=== PATIENT | female | born 1945 | race Caucasian/White ===

== ENCOUNTER → 2023-04-01 08:05 | Outpatient (REF) | payer MEDICARE, SELFPAY | LOC: WOUND 08:05 | PROVIDERS: ATTENDING PHYSICIAN Surgery; REFERRING PHYSICIAN Physician Assistant Medical | DX: L97.822 Non-pressure chronic ulcer of other part of left lower leg with fat layer exposed (principal); M79.7 Fibromyalgia; K44.9 Diaphragmatic hernia without obstruction or gangrene; G62.9 Polyneuropathy, unspecified | CPT/HCPCS: 17250; 29580; 99203 ==

== ENCOUNTER → 2023-04-22 09:49 | Outpatient (REF) | payer MEDICARE, SELFPAY | LOC: WOUND 09:49 | PROVIDERS: ATTENDING PHYSICIAN Surgery; REFERRING PHYSICIAN Physician Assistant Medical | DX: L97.822 Non-pressure chronic ulcer of other part of left lower leg with fat layer exposed (principal); M79.7 Fibromyalgia; J44.9 Chronic obstructive pulmonary disease, unspecified; G62.9 Polyneuropathy, unspecified | CPT/HCPCS: 99212 ==

== ENCOUNTER → 2023-05-28 14:40 | Outpatient (REF) | payer MEDICARE, SELFPAY | LOC: HWRAD 14:40 | PROVIDERS: ATTENDING PHYSICIAN Nurse Practitioner Adult Health; FAMILY PHYSICIAN Physician Assistant Medical; REFERRING PHYSICIAN Student in an Organized Health Care Education/Training Program | DX: J39.8 Other specified diseases of upper respiratory tract (principal); M25.511 Pain in right shoulder | CPT/HCPCS: 71250; 73030 ==

== ENCOUNTER → 2023-06-11 08:06 | Outpatient (REF) | payer MEDICARE, SELFPAY | LOC: RAD 08:06 | PROVIDERS: ATTENDING PHYSICIAN Nurse Practitioner Adult Health; FAMILY PHYSICIAN Physician Assistant Medical | DX: J44.9 Chronic obstructive pulmonary disease, unspecified (principal); R13.10 Dysphagia, unspecified | CPT/HCPCS: 74230; 92611 ==

== ENCOUNTER 2023-11-14 19:28 | Inpatient (IN) | payer MEDICARE, SELFPAY ==
[2023-11-14] VITALS (27 sets, daily range): BP systolic 102–153; BP diastolic 52–95
[2023-11-14] MEDS: TYLENOL 650 MG PO (13:56)
[2023-11-14 14:08] LABS: % Basophils 0.3 % (0-2); % Eosinophils 0.2 % (0-6); % Immature Granulocytes 0.5 % (0-0.5); % Lymphocytes 5.1 % (20.5-51.1); % Neutrophils 87.9 % (42.2-75.2); Absolute Basophils 0.1 10^3/uL (0-0.2); Absolute Immature Granulocytes 0.1 10^3/uL (0-0.05); Absolute Lymphocytes 0.8 10^3/uL (1.2-3.4); Absolute Monocytes 0.9 10^3/uL (0.1-0.6); Absolute Neutrophils 13.4 10^3/uL (1.4-6.5); Hematocrit 33.9 % (37.0-47.0); Hemoglobin 11.5 g/dL (12.0-16.0); Mean Corp Hgb Conc. 33.9 g/dL (33.0-37.0); Mean Corpuscular Volume 85.6 fL (81.0-99.0); Mean Platelet Volume 9.7 fL (7.4-10.4); Nucleated Red Blood Cells % 0 %; Platelet Count 245 10^3/uL (130-400); Red Blood Cell Count 3.96 10^6/uL (4.20-5.40); Red Cell Dist. Width 13.2 % (11.5-14.5); White Blood Cell Count 15.2 10^3/uL (4.8-10.8)
[2023-11-14 14:23] LABS: COVID-19 Antigen Negative (Negative)
[2023-11-14 14:35] LABS: ALT (SGPT) 37 U/L (0-35); AST (SGOT) 47 U/L (14-36); Albumin 3.8 g/dl (3.5-5.0); Alkaline Phosphatase 199 U/L (38-126); Blood Urea Nitrogen 15 mg/dl (7-17); Carbon Dioxide 26 mmol/L (22-30); Chloride 99 mmol/L (98-107); Glucose 132 mg/dl (70-99); Potassium 4.1 mmol/L (3.5-5.1); Sodium 135 mmol/L (135-145); Total Protein 6.5 g/dl (6.3-8.2); eGFR > 60.00
[2023-11-14 14:37] LABS: NT-proBNP 10600 pg/ml
--- NOTE | 2023-11-14 15:02 | ED.GENMED ---
History of Present Illness
General
Chief Complaint: Breathing Problem
Time Seen by Provider: 11/14/23 15:02
History of Present Illness
History of Present Illness:
HPI: Patient presents with shortness of breath associated with chest pressure. She also tells me she has had chest pressure for years. She has associated fever. She overall has an unwell feeling. Her shortness of breath gets worse when she lays
down flat.
EXAM:
GENERAL: The patient is somewhat ill-appearing and appears in respiratory distress
HEENT: Moist oral mucosa
CARDIOVASCULAR: No murmurs, normal heart rate, regular rhythm, No chest wall tenderness
PULMONARY: Mild respiratory distress, breath sounds are equally decreased
ABDOMEN: Soft with no peritoneal signs, no tenderness
NEUROLOGIC: Excellent strength all extremities, no coordination deficits
PSYCHIATRIC: Appropriate mental status, normal insight and judgement
EXTREMITIES: Nontender, 1+ bilateral edema, moves all extremities equally
SKIN: No rash, no lesions
TIME OF INITIAL ENCOUNTER: 2 PM
NUMBER AND COMPLEXITY OF PROBLEMS ADDRESSED AT THE ENCOUNTER
� Chronic conditions affecting care: High blood pressure, COPD
� Acute Exacerbation and/or Progression of Chronic Illness: This is an acute problem
� Differential Diagnosis includes: COPD exacerbation, pneumonia, viral syndrome, CHF
AMOUNT AND/OR COMPLEXITY OF DATA TO BE REVIEWED AND ANALYZED
� I performed an independent evaluation of and my interpretation is:
EKG: Sinus 104, left axis deviation, T wave abnormality noted in the lateral leads which is new in comparison to 11/30/2019
CT: I personally viewed CT imaging of the chest and agree with radiologist that there is no PE and there is evidence for multifocal pneumonia
X-rays: Chest x-ray shows a small density in the right upper lobe
Laboratory Studies: Troponin 2.4, BNP over 10,000, normal renal function, white count 15.2
Other:
� Review of other/old records: Stress nuclear from [address] Falk showed a small inferior fixed defect, EF was 54%; echo read by Dr. Kulkarni from 2022 showed an EF of 55 to 60%
� Clinical information was obtained by an independent historian: I spoke to at bedside
� Prescriptions/Medications Considered but not given:
� Further testing considered but not performed:
RISK OF COMPLICATIONS AND/OR MORBIDITY OR MORTALITY OF PATIENT MANAGEMENT
� Social determinants of health affecting care: Lives at home
� Discussion with other providers: Discussed case with Dr. Falk. Hospitalist for admission.
� Escalation of care including admission/observation vs risk of discharge considered: The patient has lateral T wave inversion along with troponin of 2.4 which is new. Nitroglycerin with only questionable improvement and she
also tells me that she has chest tightness 'for years'. However since she does have abnormal evaluation for ischemia, will place on nitroglycerin drip. BNP is also markedly elevated at over 10,000�she was diuresed. Chest CT shows evidence of
pneumonia is likely multifactorial. There is no evidence for PE. I have also heparinized the patient.
Past History
Past History
ED Past Medical History: COPD, Fibromyalgia, Hypercholesterolemia, Other (chronic diarrhea started 10/2017) and Other (Alkalosic spondylitis, herniated lumbar discs, neuropathy)
ED Past Surgical History: Cholecystectomy and Gynecological (Hysterectomy)
Social History
Tobacco: Smoker
Alcohol: Daily (Wine)
Personal:
Living: with family
Family History
Family History: Other (Brother with herniated discs in the lumbar spine)
Phy Exam
Physical Exam
Physical Exam:
See HPI
Scores
Heart Failure Risk
Heart Failure Risk Score: Not Applicable
Course
Orders/Labs/Results
Orders:
Orders
11/14/23 13:51
CR Chest - 2 Views Urgent
Comment:
Reason For Exam: cough/SOB
11/14/23 13:52
ECG [Electrocardiogram (*1)] Urgent
Reason for Study: Chest Pain
EKG- Treatment ONCE
11/14/23 13:53
Acetaminophen [Tylenol] 650 mg PO NOW STA
11/14/23 14:02
CBC/With Diff [Complete Blood Count/With Diff] Urgent
COVID-19 Antigen Urgent
Source: Nasal Swab
Comprehensive Metabolic Panel Urgent
NT-proBNP Urgent
Troponin I Urgent
11/14/23 14:48
PTT Urgent
Prothrombin Time Urgent
11/14/23 15:07
CT Chest Pe Study Urgent
Comment:
Reason For Exam: abnormal CXR, high trop/bnp
11/14/23 15:52
Furosemide [Lasix] 40 mg IV NOW STA
MethylPREDNISolone PF [Solu-Medrol Pf] 125 mg IV NOW STA
11/14/23 15:56
Nitroglycerin Sublingual [Nitrostat (Sublingual)] 0.4 mg SL NOW STA
11/14/23 16:11
Heparin 4,000 units IV NOW STA
Nursing to Place Non Medication Order As Directed
Physician Order: PTT 6 hours after initial start of Heparin infusion
11/14/23 16:15
Heparin 23574 Units/250 ml 25,000 units in 250 ml IV PER PROTOCOL
Weight to be used for heparin protocol in kilograms (kg):: 77.7
Protocol:: Cardiac Tx/Acute Coronary
PTT Goal Range to be used:: PTT 73 to 111 seconds
Order type:: Initial
INITIAL Infusion Dose (UNITS/KG/hr) & then follow protocol:: 12 units/kg/hr
Infusion Dose in UNITS/hr & then follow protocol (UNITS/hr):: 950
INFUSION RATE in mL/hr & then follow protocol (mL/hr):: 9.5
PTT less than or equal to 64 seconds:: Increase rate by 200 units/hr (+ 2 mL/hr)
PTT 64.1 to 72.9 seconds:: Increase rate by 100 units/hr (+ 1 mL/hr)
PTT 73 to 111 seconds:: Target Range. No change in rate.
PTT 111.1 to 130.9 seconds:: Decrease rate by 100 units/hr (- 1 mL/hr)
PTT 131 to 199.9 seconds:: HOLD for 1 hr. Then decrease rate by 200 units/hr (- 2 mL/hr)
PTT greater than or equal to 200 seconds:: HOLD for 2 hrs & Notify Provider. Then decrease by 200 units/hr (-
2 mL/hr)
Lab follow-up:: Each change, PTT q6h until 2 consecutive are therapeutic. Then PTT
daily.
11/14/23 16:55
Azithromycin 500 mg/250 ml [Zithromax Infusion] 500 mg in 250 ml IV NOW
CefTRIAXone [Rocephin] 1,000 mg IV NOW STA
11/14/23 17:[address] See Dose Instructions IV DIRECTED
11/14/23 17:15
Nitroglycerin INFUSION CONTINUOUS Nitroglycerin 100 mg/250 ml [Nitroglycerin Premix] 100 mg in 250 ml IV PER PROTOCOL
Initial dose in mcg/min, then titrate:: 5
Titrate to keep:: Chest Pain Free
Titrate by mcg/min:: 5 mcg/min, may increase by 10 mcg/min if dose > 20 mcg/min
Frequency of titrations (minutes):: every 3-5 minutes
Maximum dose in mcg/min:: 200
Begin to taper infusion when:: Remained at goal for 2hrs
Taper by mcg/min:: 5 mcg/min
Frequency of taper (minutes) if patient maintains goal:: 30
Taper to off?: Yes
If infusion off & no longer maintaining goal:: Contact Provider
11/14/23 22:30
PTT Urgent
Abnormal Lab Results
11/14/23 11/14/23
14:02 14:48
WBC 15.2 H 10^3/uL
(4.8-10.8)
RBC 3.96 L 10^6/uL
(4.20-5.40)
Hgb 11.5 L g/dL
(12.0-16.0)
Hct 33.9 L %
(37.0-47.0)
Abs Immat Gran (auto) 0.1 H 10^3/uL
(0-0.05)
Absolute Neuts (auto) 13.4 H 10^3/uL
(1.4-6.5)
Absolute Lymphs (auto) 0.8 L 10^3/uL
(1.2-3.4)
Absolute Monos (auto) 0.9 H 10^3/uL
(0.1-0.6)
Neutrophils % 87.9 H %
(42.2-75.2)
Lymphocytes % 5.1 L %
(20.5-51.1)
PT 16.3 H Sec
(11.4-14.6)
APTT 48.8 H Sec
(23.4-35.0)
Glucose 132 H mg/dl
(70-99)
AST 47 H U/L
(14-36)
ALT 37 H U/L
(0-35)
Alkaline Phosphatase 199 H U/L
(38-126)
Troponin I 2.410 H* ng/ml
11/14/23 14:02
11/14/23 14:02
Vital Signs
Initial and Last Documented VS:
Initial Vital Signs
Temp Pulse Resp BP Pulse Ox
101.1 F H 115 20 153/87 91
11/14/23 13:47 11/14/23 13:47 11/14/23 13:47 11/14/23 13:47 11/14/23 13:47
Last Documented Vital Signs
Temp Pulse Resp BP Pulse Ox
100.5 F H 98 22 135/61 94
11/14/23 14:46 11/14/23 16:07 11/14/23 15:30 11/14/23 16:07 11/14/23 15:30
*Critical Care Note
Total Time (30-74mins, 75-104mins- exclusive of procedures): 40min
comment:
The patient has abnormal EKG with abnormal troponin, very high BNP, likely a contributing factor of COPD for which she was given steroids, was placed on heparin and nitroglycerin emergently and I had discussions with cardiology emergently.
ED Attending Note
-
Portions of this chart may have been created with voice recognition software.� Occasional wrong word or��sound alike� substitutions may have occurred due to the inherent limitations of voice recognition software.
Discharge Plan
Departure
Patient Disposition: Admit
Date of Disposition: 11/14/23
Time of Disposition: 16:58
Presentation/result/management discussed w/ accepting MD/DO: Hospitalist
Discharge Problem:
Pneumonia
Prescriptions:
No Action
losartan 50 MG tablet
100 mg PO DAILY
biotin 5,000 MCG tablet,disintegrating
5,000 mcg PO DAILY
zolpidem 10 MG tablet
10 mg PO HS
sertraline 50 MG tablet
150 mg PO DAILY
calcium carbonate 500 MG tablet
500 mg PO DAILY
atorvastatin 40 MG tablet
40 mg PO QPM
lansoprazole [Prevacid] 30 MG capsule,delayed release(DR/EC)
30 mg PO DAILY
albuterol sulfate 1 PUFF HFA aerosol inhaler
2 puff inhalation R Q4HPRN PRN (Reason: sob)
cholecalciferol (vitamin D3) 2,000 UNITS tablet
2,000 units PO DAILY
multivitamin with folic acid [Tab-A-Kashif] 1 TABLET tablet
1 tab PO DAILY
celecoxib 200 MG capsule
200 mg PO BID
oxycodone-acetaminophen [Percocet] 10-325 mg Tablet
1 tab PO Q8HPRN PRN (Reason: severe pain)
Gigzoloztri Aerosphere 160-9-4.8 mcg/actuation Hfa Aerosol Inhaler
2 inh INHALATION R BID
Visbiome 112.5 billion cell Capsule
1 cap PO DAILY
Referrals:
Linette Hernandez PA-C [Family Provider] -
Interventions
Interventions:
*Risk Screen - Suicide Last Done: 11/14/23 13:47
*General Assessment Last Done: 11/14/23 13:47
*Neglect/Abuse Screening Last Done: 11/14/23 13:47
ED- Cardiac Assessment Last Done: 11/14/23 14:40
ED- Pulmonary Assessment Last Done: 11/14/23 14:40
Discharge Date and Time
Print Language: SAUDI ARABIAN
[2023-11-14 15:04] LABS: INR 1.33; PT 16.3 Sec (11.4-14.6)
[2023-11-14 15:05] LABS: APTT 48.8 Sec (23.4-35.0)
[2023-11-14] MEDS: NITROSTAT (SUBLINGUAL) 0.4 MG SL (16:05)
[2023-11-14] MEDS: SOLU-MEDROL PF 125 MG IV (16:06)
[2023-11-14] MEDS: LASIX 40 MG IV (16:07)
[2023-11-14] MEDS: HEPARIN 4000 UNITS IV (16:25)
[2023-11-14] MEDS: HEPARIN 25000 UNITS/250 ML IV (16:26)
[2023-11-14] MEDS: ROCEPHIN 1000 MG IV (17:27)
[2023-11-14] MEDS: ZITHROMAX INFUSION 250 IV (17:37)
[2023-11-14] MEDS: ASPIRIN 325 MG PO (17:37)
[2023-11-14] MEDS: NITROGLYCERIN PREMIX 250 IV (17:50)
--- NOTE | 2023-11-14 18:11 | HPS.HSE ---
Family Physician
-
Family Physician: Linette Hernandez
Chief Complaint
-
SOB
History of Present Illness
The patient is a 78 yo woman with PMH significant for COPD (sees Pulmonary), HTN, HLD, GERD, who presents to the ED due to worsening dyspnea that has been increasingly worse over the past 1 [place] got [place] on [place],
and said that she was having notably worsening dyspnea with exertion. She has band-like chest pressure that she describes as having 'forever' however it has been worse this past week. She now has a fever as well. Of note SOB is worse with lying
flat. She is feeling nausea a/w CP and SOB, and says it may be because she hasn't eaten all day and feels hungry. No n/v, no diarrhea, no constipation, no dysuria. No rashes, no bruising, no bleeding. She was given IV Lasix in ED, troponin is
elevated at 2.410, Cardiology consultation is placed from ED, and pt started in heparin gtt and NTG gtt for persistent CP. Also found to have multifocal PNA on CT chest, and started in IV Rocephin and IV Azithromycin.
Medical History
Past Medical History
Past Medical History: Reports COPD, GERD, HTN, Hypercholesterolemia, Psychiatric (depression) and Other (OA right hip, neuropathy, insomnia)
Past Surgical History: Reports Gynocological (ТАТЬЯНА 1981) and Orthopedic (right total hip arthroplasty, rotator cuff 1999)
Social History
Tobacco: Former Smoker
Alcohol: Occasional
Personal:
Living: With Family
Family History
Family History: CAD (father from acute [place])
Allergies / Home Medications
Allergies reflects when Allergies were last updated in [employer].
Home Medications with original date entered in [employer]
Allergy/Medication List:
Allergies
Allergy/AdvReac Type Severity Reaction Status Date / Time
mold Allergy COUGHING, Verified 11/14/23 13:47
RUNNY
NOSE, AND
HEADACHE
Home Medications
losartan 50 mg tablet 100 mg PO DAILY 03/15/16
biotin 5,000 mcg disintegrating tablet 5,000 mcg PO DAILY 01/06/17
calcium carbonate 500 mg PO DAILY 01/06/17
sertraline 50 mg tablet 150 mg PO DAILY 01/06/17
zolpidem 10 mg tablet 10 mg PO HS 01/06/17
albuterol sulfate 90 mcg/actuation aerosol inhaler 2 puff inhalation R Q4HPRN PRN sob 05/31/18
atorvastatin 40 mg tablet 40 mg PO QPM 05/31/18
cholecalciferol (vitamin D3) 50 mcg (2,000 unit) tablet 2,000 units PO DAILY 05/31/18
lansoprazole 30 mg capsule,delayed release (Prevacid) 30 mg PO DAILY 05/31/18
multivitamin with folic acid 400 mcg tablet (Tab-A-Kashif) 1 tab PO DAILY 05/31/18
celecoxib 200 mg capsule 200 mg PO BID 05/04/20
budesonide 160 mcg-glycopyr 9 mcg-formot 4.8 mcg/actuation HFA inhaler (Breztri Aerosphere) 2 inh inhalation R BID 08/17/22
oxycodone-acetaminophen 10 mg-325 mg tablet (Percocet) 1 tab PO Q8HPRN PRN severe pain 08/17/22
Lactobac no.2-Bifidobac no.1-S. thermo 112.5 billion cell capsule (Visbiome) 1 cap PO DAILY 11/14/23
Review of Systems
-
A 12 point ROS was completed and negative except as noted: Yes
Physical Exam
Vital Signs
Vital Signs
Temp Pulse Resp BP Pulse Ox
100.5 F H 101 23 135/61 95
11/14/23 14:46 11/14/23 17:50 11/14/23 17:50 11/14/23 16:07 11/14/23 17:50
Physical Exam
General: Well Developed, Well Nourished and Respiratory Distress (dyspnea with conversation)
Respiratory: Clear and Other (decreased breath sounds b/l)
Cardiac: S1/S2 and Regular Rhythm
GI: Soft, Non Tender and Non Distended
Musculoskeletal: No Clubbing, No Cyanosis and No Edema
Skin: Warm and Dry
Neuro: AO x 3, No Motor Deficits and Nonfocal/grossly intact
Psych: Calm
Laboratory Results
-
11/14/23 14:02
11/14/23 14:02
Laboratory Results
PT 16.3 Sec (11.4-14.6) H 11/14/23 14:48
INR 1.33 11/14/23 14:48
APTT 48.8 Sec (23.4-35.0) H 11/14/23 14:48
Lactic Acid 1.0 mmol/L (0.7-2.0) 11/14/23 17:23
Total Bilirubin 1.0 mg/dl (0.2-1.3) 11/14/23 14:02
AST 47 U/L (14-36) H 11/14/23 14:02
ALT 37 U/L (0-35) H 11/14/23 14:02
Alkaline Phosphatase 199 U/L (38-126) H 11/14/23 14:02
Troponin I 2.410 ng/ml H* 11/14/23 14:02
Impression/Plan
-
IMPRESSION:The patient is a 78 yo woman with PMH significant for COPD (sees Pulmonary), HTN, HLD, GERD, who presents to the ED due to worsening dyspnea that has been increasingly worse over the past 1 [place] got back on
Wednesday, and said that she was having notably worsening dyspnea with exertion. She has band-like chest pressure that she describes as having 'forever' however it has been worse this past week. She now has a fever as well. Of note SOB is worse with
lying flat. Troponin is elevated at 2.410, Cardiology consultation is placed from ED, and pt started in heparin gtt and NTG gtt for persistent CP. Also found to have multifocal PNA on CT chest, and started in IV Rocephin and IV Azithromycin.
#Acute hypoxic respiratory failure, multifactorial associated with Multifocal Pneumonia & NSTEMI, in setting of underlying comorbidity of COPD
-[facility] admission, tele monitoring
-Continue hep gtt and ntg gtt started in ED, per protocols
- serial trop (tonight and tomorrow am)
-Cardiology consultation placed and appreciated
-serial EKG
-echocardiogram (echo 07/2022 EF 55-60% on normal)
-NPO p mn
-continue O2, wean as appropriate
-hold off on further IV Lasix at this time, s/p 40 IV in ED
-s/p IV Solu-Medrol x 1 in ED, hold off on further doses as this does not seem to be COPD exac at this time
-daily aspirin
#Multifocal PNA w fever
-CT chest - bilateral tree-in-bud opacities with foci of more nodular consolidation and surrounding groundglass opacities consistent with multifocal pneumonia. There are additional prominent mediastinal and bilateral hilar lymph nodes which are
likely reactive Recommend follow-up CT to ensure resolution.
-Will need f/u CT
-cont IV Rocephin and IV Azithromycin
-sputum cx, blood cx
#Former tobacco use
-f/u CT as above
# HTN
-Losartan
#GERD
-prevacid
#HLD
-statin
#Depression
-Sertraline
DVT proph-hep gtt
Full Code
--- NOTE | 2023-11-14 19:13 | EDRN ---
Report received, introduced myself to patient and patient aware waiting on a room at this time, zithromax completed at this time, patient reports her pressure in chest is still at a 6, will review orders for this, other seo patient comfortable,
belongings bagged, at bedside with her, call light in reach.
--- NOTE | 2023-11-14 21:30 | PTCARENOTE ---
received patient from the ED. AAOx3. SR 80s. bp stable. patient complaining of chest pressure-band like, under her breast, /. nitro gtt increased per order. EKG completed. patient also complaining of worsening shortness of breath. patient appears
uncomfortable. + moist cough. RR 24. 94 on 3L. coarse b/l bases. anterior wheezing noted. updated respiratory for a PRN neb treatment. heparin gtt infusing at 9.5 ml/hr. reviewed plan of care with patient and verbalized understanding. NPO at
midnight. answered all questions.
patient states taking Losartan and Atorvastatin at night. orders placed per Geneva Fofana NP (Linda). patient requesting at home Ambien dose as well-will hold tonight per [facility] HAND. patient agreeable.
[2023-11-14] MEDS: VENTOLIN NEBULES 2.5 MG INH (21:34)
[2023-11-14] MEDS: COZAAR 100 MG PO (22:33)
[2023-11-14] MEDS: LIPITOR 40 MG PO (22:33)
[2023-11-14 22:58] LABS: APTT 66.1 Sec (23.4-35.0)
[2023-11-15] VITALS (9 sets, daily range): BP systolic 102–130; BP diastolic 55–77
[2023-11-15] MEDS: NSS 1000 IV (00:07)
[2023-11-15] MEDS: VENTOLIN NEBULES 2.5 MG INH (02:19)
--- NOTE | 2023-11-15 03:11 | PTCARENOTE ---
Addendum entered by Ayo Lomax RN 11/15/23 05:56:
patient resting in bed comfortably. denies any chest pressure at this time. nitro gtt maintained at 20 mcg/min. heparin gtt infusing per protocol.
Original Note:
patient complaining of 4/10 middle chest 'tightness' that worsened with deep breaths. increased nitro gtt to 20 mcg/min. respiratory bedside and administered PRN neb. patient states after neb-pain is gone. EKG completed. nitro gtt maintained. HR SR
80s with PACs. bp 118/59.
[2023-11-15 05:16] LABS: % Basophils 0.1 % (0-2); % Immature Granulocytes 0.5 % (0-0.5); % Lymphocytes 3.4 % (20.5-51.1); % Monocytes 2.4 % (1.7-9.3); % Neutrophils 93.6 % (42.2-75.2); Absolute Immature Granulocytes 0.1 10^3/uL (0-0.05); Absolute Lymphocytes 0.5 10^3/uL (1.2-3.4); Absolute Monocytes 0.3 10^3/uL (0.1-0.6); Absolute Neutrophils 13.5 10^3/uL (1.4-6.5); Hematocrit 29.9 % (37.0-47.0); Hemoglobin 10.4 g/dL (12.0-16.0); Mean Corp Hgb Conc. 34.8 g/dL (33.0-37.0); Mean Corpuscular Hgb 30.1 pg (27.0-31.0); Mean Corpuscular Volume 86.7 fL (81.0-99.0); Mean Platelet Volume 10.1 fL (7.4-10.4); Nucleated Red Blood Cells % 0 %; Platelet Count 241 10^3/uL (130-400); Red Blood Cell Count 3.45 10^6/uL (4.20-5.40); White Blood Cell Count 14.4 10^3/uL (4.8-10.8)
[2023-11-15 05:22] LABS: INR 1.43; PT 17.3 Sec (11.4-14.6)
[2023-11-15 05:23] LABS: APTT 77.8 Sec (23.4-35.0)
[2023-11-15 05:30] LABS: ALT (SGPT) 32 U/L (0-35); AST (SGOT) 36 U/L (14-36); Albumin 3.2 g/dl (3.5-5.0); Alkaline Phosphatase 174 U/L (38-126); Blood Urea Nitrogen 21 mg/dl (7-17); Calcium 8.3 mg/dl (8.4-10.2); Carbon Dioxide 27 mmol/L (22-30); Chloride 100 mmol/L (98-107); Estimated Creatinine Clearance 69 ml/min; Glucose 199 mg/dl (70-99); HDL Cholesterol 43 mg/dl; LDL Cholesterol, Calculated 63 mg/dl; Potassium 3.3 mmol/L (3.5-5.1); Sodium 135 mmol/L (135-145); Total Bilirubin 0.5 mg/dl (0.2-1.3); Total Cholesterol 121 mg/dl (50-199); Total Protein 5.7 g/dl (6.3-8.2); Triglyceride 77 mg/dl (10-149); Very Low Density Lipoprotein 15 mg/dl (0-30); eGFR > 60.00
[2023-11-15 05:40] LABS: Troponin I 0.952 ng/ml
[2023-11-15] MEDS: SPIRIVA RESPIMAT 2.5 MCG 2 PUFF INH (07:15)
[2023-11-15] MEDS: SYMBICORT 160/4.5 MCG INHALER 2 PUFF INH ×2 (07:15→19:24)
[2023-11-15] MEDS: ZOLOFT 150 MG PO (07:31)
[2023-11-15] MEDS: PROTONIX 40 MG PO (07:31)
[2023-11-15] MEDS: LOW STRENGTH ASPIRIN 81 MG PO (07:31)
--- NOTE | 2023-11-15 07:45 | CON.CAR ---
Addendum entered and electronically signed by Epifanio Kulkarni DO 11/15/23 11:08:
I saw and examined the patient.
The System Support Administrator's note was reviewed and I agree with the note.
Comment:
Plan:
She has multifactorial dyspnea including HF and COPD exacerbation and may have PNA.
Discussed that her troponin has peaked when she came in and that she is likely a subacute presentation of CT that she may have suffered on Nov 11.
Await echo but preliminary notes wall motion change and mildly reduced EF.
EKG with T wave inversion but without ST elevation.
Discussed options and would continue IV Heparin and IV nitro for now.
Discussed possible left heart cath next 24 hrs. Would attempt further stabilization from a pulm and HF standpoint prior to cath if possible.
Some of her dyspnea and orthopnea likely related at this point to HF.
Cont IV diuresis
Will reassess pt
Cont Pulm toilet as eval as per pulm
Discussed with IC and with nursing at bedside.
Original Note:
Consultation
Consultation Request
Date/Time Consultation Requested: 11/14/2023
Date/Time Consultation Performed: 11/15/2023
Requesting Provider: Dr. Navarro
Performing Provider: Namrata Chappell PA-C for Dr. Aleksandar White
Reason for Consultation: Chest pain, shortness of breath
Medical History
-
History of Present Illness:
Patient is a 78-year-old female with past medical history significant for COPD, hypertension, hyperlipidemia, GERD who presents to emergency department with chest heaviness associated with shortness of breath. Patient reports intermittent
exertional chest discomfort like a band around her chest for several months and dyspnea on exertion. Over the last week she noted worsening cough associated with shortness of breath and chest pressure/heaviness with minimal activity. Wednesday [place]
was at the beach and was unable to walk several steps before having symptoms symptoms continued at rest. She continued to have chest heaviness, cough, shortness of breath, orthopnea and PND throughout the weekend prompting her to come to the
emergency department last evening 11/14/2023. On presentation to emergency department noted to have elevated troponin at 2.41. EKG showed sinus tachycardia with nonspecific T wave abnormality in lateral lead with septal infarct age indeterminate.
Started on IV heparin and NTG drip. ProBNP 10,600. She received IV Lasix [address] of chest was negative for PE. There were bilateral groundglass opacities consistent for multifocal pneumonia as well as prominent mediastinal and bilateral hilar
lymph nodes. She was given dose of IV steroids and placed on Rocephin and azithromycin.
Past medical history:
Hypertension
Hyperlipidemia
COPD
GERD
Depression
Fibromyalgia
Chronic back pain/Spinal stenosis
Peripheral neuropathy
Diverticulitis
Thyroid nodule
Past Medical History
Past Medical History: Other (See HPI)
Past Surgical History: Gynecological (Hysterectomy), Orthopedic (Right hip replacement, carpal tunnel release, rotator cuff surgery) and Other
Social History
Tobacco: Former Smoker
Alcohol: Occasional
Drug: None
Personal:
Living: With Family
Family History
Family History: Other (Mother of brain tumor. Father at age 42, was alcoholic and suspected CT)
Allergies / Home Medications
Allergy/AdvReac Type Severity Reaction Status Date / Time
mold Allergy COUGHING, Verified 11/14/23 13:47
RUNNY
NOSE, AND
HEADACHE
�Medication �Instructions �Recorded �Confirmed �Type
losartan 50 mg tablet 100 mg PO DAILY Blood Pressure 03/15/16 11/14/23 History
biotin 5,000 mcg disintegrating 5,000 mcg PO DAILY Supplement 01/06/17 11/14/23 History
tablet
calcium carbonate 500 mg PO DAILY Supplement 01/06/17 11/14/23 History
sertraline 50 mg tablet 150 mg PO DAILY Depression 01/06/17 11/14/23 History
zolpidem 10 mg tablet 10 mg PO HS Sleep 01/06/17 11/14/23 History
albuterol sulfate 90 mcg/actuation 2 puff inhalation R Q4HPRN PRN sob 05/31/18 11/14/23 History
aerosol inhaler
atorvastatin 40 mg tablet 40 mg PO QPM High Cholesterol 05/31/18 11/14/23 History
cholecalciferol (vitamin D3) 50 2,000 units PO DAILY Supplement 05/31/18 11/14/23 History
mcg (2,000 unit) tablet
lansoprazole 30 mg capsule,delayed 30 mg PO DAILY Gastrointestinal 05/31/18 11/14/23 History
release (Prevacid) Issue
multivitamin with folic acid 400 1 tab PO DAILY Supplement 05/31/18 11/14/23 History
mcg tablet (Tab-A-Kashif)
celecoxib 200 mg capsule 200 mg PO BID Pain 05/04/20 11/14/23 History
budesonide 160 mcg-glycopyr 9 2 inh inhalation R BID 08/17/22 11/14/23 History
mcg-formot 4.8 mcg/actuation HFA Lung/Breathing Issues
inhaler (Breztri Aerosphere)
oxycodone-acetaminophen 10 mg-325 1 tab PO Q8HPRN PRN severe pain 08/17/22 11/14/23 History
mg tablet (Percocet)
Lactobac no.2-Bifidobac no.1-S. 1 cap PO DAILY Gastrointestinal 11/14/23 11/14/23 History
thermo 112.5 billion cell capsule Issue
(Visbiome)
Review of Systems
-
History Source: Patient
All other systems: Negative unless noted
Physical Exam
Vital Signs
Temp Pulse Resp BP Pulse Ox
98.1 F 90 18 112/61 96
11/15/23 07:24 11/15/23 07:18 11/15/23 07:24 11/15/23 04:56 11/15/23 07:24
GEN: No distress, awake, Ox3, lying in bed on right side
HEENT: supple, anicteric, mmm
LUNGS: Diffuse bilateral wheezes CTA, rhonchorous breath sounds better with cough; wearing 2 L oxygen
CV: Reg, S1/S2, 1/6 syst murmur, no rub or gallop
ABD: soft, BS+, NT/ND
EXT: No edema, clubbing or cyanosis
NEURO: Gross non-focal
SKIN: No rash, warm, dry, pink
Lab Results
11/15/23 04:56
11/15/23 04:55
Troponin I 0.952 ng/ml H* 11/15/23 04:55
Htv-Y-Hrtbtnrsbrl Pept 00938 pg/ml 11/14/23 14:02
Impression / Plan
-
PCP: Linette Hernandez
Financial Planning Advisor: Evaluated by Dr. Urban 2015, no skid machine operator since
Impression:
Presented 11/14/2023 with progressively worsening chest tightness, shortness of breath, cough, orthopnea, PND
Acute hypoxic respiratory insufficiency
COPD exacerbation
Bilateral pneumonia
Acute heart failure preserved ejection fraction, proBNP 10,600
Abnormal troponin, peaked 2.41
NSTEMI, suspect late presentation
Hypertension
Hyperlipidemia
COPD
GERD
Depression
Fibromyalgia
Spinal stenosis
Peripheral neuropathy
Diverticulitis
Thyroid nodule
Echo 11/15/2023: ordered
Echo 08/18/2022: EF 55 to 60% with no significant valvular disease
Lexiscan nuclear stress test 04/13/2016: Small fixed defect in inferior segment consistent with infarction versus soft tissue attenuation/diaphragmatic attenuation, EF 54%
Plan:
-Presented 11/14/2023 with progressively worsening chest tightness, shortness of breath, cough, orthopnea, PND.
-Acute hypoxic respiratory insufficiency which is likely multifactorial secondary to COPD exacerbation, acute heart failure and bilateral pneumonia.
-Continue IV antibiotics per primary service, Pro-Pete pending
-Continue nebulizers for COPD
-Acute heart failure preserved ejection fraction, proBNP 10,600
-Continue IV diuresis excessive Lasix 40 mg
-Follow renal function, creatinine stable at 0.7
-Replete potassium, K+ 3.3
-Abnormal troponin, peaked 2.41 on admission then trended down. EKG shows sinus rhythm with concern for age-indeterminate septal infarction. Patient currently chest pain-free. Suspect NSTEMI, with late presentation CT.
-Continue IV NTG gtt at 5 mcg/min
-Check echocardiogram
-Continue IV heparin
-Discussed ischemic evaluation with cardiac catheterization. Keep NPO for now. Unclear if patient will be able to lay flat today for catheterization. Will reassess later this morning.
HPI 11/15/2023:
Patient is a 78-year-old female with past medical history significant for COPD, hypertension, hyperlipidemia, GERD who presents to emergency department with chest heaviness associated with shortness of breath. Patient reports intermittent
exertional chest discomfort like a band around her chest for several months and dyspnea on exertion. Over the last week she noted worsening cough associated with shortness of breath and chest pressure/heaviness with minimal activity. Wednesday she
was at the beach and was unable to walk several steps before having symptoms symptoms continued at rest. She continued to have chest heaviness, cough, shortness of breath, orthopnea and PND throughout the weekend prompting her to come to the
emergency department last evening 11/14/2023. On presentation to emergency department noted to have elevated troponin at 2.41. EKG showed sinus tachycardia with nonspecific T wave abnormality in lateral lead with septal infarct age indeterminate.
Started on IV heparin and NTG drip. ProBNP 10,600. She received IV Lasix [address] of chest was negative for PE. There were bilateral groundglass opacities consistent for multifocal pneumonia as well as prominent mediastinal and bilateral hilar
lymph nodes. She was given dose of IV steroids and placed on Rocephin and azithromycin.
Data Reviewed
-
EKG: Report Reviewed by me, Discussed with Physician, Discussed with Nurse and Discussed with Patient
Radiology: Report Reviewed by me, Discussed with Physician, Discussed with Nurse and Discussed with Patient
CT Scan: Report Reviewed by me, Discussed with Physician, Discussed with Nurse and Discussed with Patient
Labs: Labs Reviewed by me, Discussed with Physician, Discussed with Nurse and Discussed with Patient
Old Records: Reviewed
[2023-11-15] MEDS: ZITHROMAX INFUSION 250 IV (08:14)
[2023-11-15 09:01] LABS: Glycohemoglobin (HgbA1c) 6.1 % (4.0-5.6)
--- NOTE | 2023-11-15 09:02 | PTCARENOTE ---
Assumed care at 0645. Patient is AO x3, coughing intermittent, HOB 30 degrees, voice hoarse, coarse breath sound, coarse crackles right base, dyspneic with activity, oxygen 2 liters NC. Has constant chest pressure no pain. NSR with PAC's. Heparin
and Nitro infusing. IV antibiotics per MAY. Abdomen mildly tender to palpation. NPO for now. Echo finished at bedside. Call mack in reach
[2023-11-15 09:14] LABS: Magnesium 1.8 mg/dl (1.6-2.3)
--- NOTE | 2023-11-15 09:27 | W.PN.HOSP.TC ---
Today's Communication/Plan
-
cont heparin
cont Abx
Cardio and pulm consult
wean off O2
Assessment / Plan
Assessment / Plan
78yo F with insomnia, anxiety, HTN, COPD, HLD came with c/o 1 week of persistent worsening chest tightness, found elevated troponin and bilateral pneumonia.
A/P:
#CAP with unspecified organism
Rocephin/Azithromycin
COVID-19 neg, check RSV and influenza
Check Legionella and S.pneumo urinary Ag
Sputum Cx if possible
Procalcitonin
#Elevated troponin, concern for NSTEMI
Heparin, DAPT
Serial troponina nd EKG
Statin
Telemetry
Cardio consult
LDL WNL
check TSH
#Acute hypoxic insufficiency 2/2 mild CHF (unspecified) exacerbation
Echo, telemetry, Lasix, follow daily weights and electrolytes
wean off O2
#COPD, not in exacerbation
#RUL lung nodule
#Emphysema
COPnt bronchodilators
SIze of the nodule does not corresponds to previously seen 2mm lesion - Pulm consult
#PReDM
advise low carb diet
#Hypokalemia
replete and follow potassium
Check magnesium
#Anxiety D/o
#Essential HTN
#HLd
cont home meds
#Cronic elevation of alk.phos
#s/p cholecytectomy
#Mild anemia
#Thyroid nodules
at least since 2018
no RUQ pain, suspect bone origin
Recommend outpatient f/u with PCP
DVT ppx on hep
Full code
I have spent at least 58min reviewing chart, test results, communication with consultants and direct patient care
Anticipated Discharge: > 48 hours
Subjective/Interval History
-
Date of Service: November 15, 2023
Objective Data
-
Labs:
Laboratory Results
11/14/23 11/15/23 11/15/23
22:34 04:55 04:55
WBC
Hgb
Hct
Plt Count
PT 17.3 H
INR 1.43
APTT 66.1 H 77.8 H Cancelled
Sodium 135
Potassium 3.3 L
Chloride 100
Carbon Dioxide 27
BUN 21 H
Creatinine 0.7
Glucose 199 H
Calcium 8.3 L
Total Bilirubin 0.5
AST 36
ALT 32
Alkaline Phosphatase 174 H
11/15/23 11/15/23
04:56 11:00
WBC 14.4 H
Hgb 10.4 L
Hct 29.9 L
Plt Count 241
PT
INR
APTT Pending
Sodium
Potassium
Chloride
Carbon Dioxide
BUN
Creatinine
Glucose
Calcium
Total Bilirubin
AST
ALT
Alkaline Phosphatase
Vital Signs:
Vital Signs
Temp Pulse Resp BP Pulse Ox
98.1 F 90 18 112/61 96
11/15/23 07:24 11/15/23 07:18 11/15/23 07:24 11/15/23 04:56 11/15/23 07:24
I&O
11/14/23 11/15/23 11/16/23
06:59 06:59 06:59
Intake Total 250 / 250 250 / 250
Output Total 1575 / 1575 450 / 450
Balance -1325 / -1325 -200 / -200
Review of Systems
-
History Source: Patient
All other systems: Reviewed and negative
Respiratory: Reports Trouble Breathing
Physical Exam
-
General: No Apparent Distress
HEENT: Normocephalic and Atraumatic
Respiratory: Clear to Auscultation
GI: Soft, Nontender and Nondistended
Genito-urinary: No Costovertebral Tender
Musculoskeletal: No Clubbing, No Cyanosis and No Edema
Skin: Warm
Neuro: Awake, Alert, Oriented and AO x 3
Psych: Calm
--- NOTE | 2023-11-15 09:44 | CON.PUL ---
Consultation
Consultation Request
Date/Time Consultation Requested: 11/15/2023-7:30 AM
Date/Time Consultation Performed: 11/15/2023-8 AM
Requesting Provider: Hospitalist
Performing Provider: Dr. Boykin
Reason for Consultation: Shortness of breath
Medical History
-
Chief Complaint: Shortness of breath
History of Present Illness:
78-year-old female with a history of COPD, 53-mrqw-dbph smoking history quit 10 years ago, hypertension, hyperlipidemia, reflux who presents with progressive shortness of breath diagnosed with multifocal pneumonia and NSTEMI-pulmonary consulted for
pneumonia/COPD 11/15/2023. She has unexpected dry heaves this morning. She has been unable to eat for several days. She does have some epigastric pain. She is on a PPI. She complains of progressive shortness of breath but no chest pain,
pleurisy, hemoptysis. She does have chest congestion with difficulties mobilizing her secretions. She was previously stable from a pulmonary perspective though seen in July in the pulmonary office with some COPD like issues. She offers no
complaints of current abdominal pain but does feel like she is constipated. She has no blood per rectum, weakness, or increased lower extremity swelling.
Past Medical History
Past Medical History: None (COPD. Former jnvnoa-77-21-pack-year quit 10 years ago. Hypertension. Hyperlipidemia. GERD. Depression. Fibromyalgia. Chronic back pain/spinal stenosis. Peripheral neuropathy. Diverticulosis. Thyroid nodule.)
Past Surgical History: None (Hysterectomy. Right hip replacement. Carpal tunnel. Rotator cuff.)
Social History
Tobacco: Former Smoker (05-74-emfo-year quit 10 years ago)
Alcohol: Occasional
Drug: None
Personal:
Living: With Family
Occupational Exposures: No known asbestos exposure
Environmental Exposures: No known tuberculosis exposure
Family History
Family History: Other (Mother-brain tumor. Father CAD and alcoholic diet 42 years old)
Allergies / Home Medications
Allergies
Allergy/AdvReac Type Severity Reaction Status Date / Time
mold Allergy COUGHING, Verified 11/14/23 13:47
RUNNY
NOSE, AND
HEADACHE
Home Medications
�Medication �Instructions �Recorded �Confirmed �Last Taken �Type
losartan 50 mg tablet 100 mg PO DAILY Blood Pressure 03/15/16 11/14/23 11/13/23 History
biotin 5,000 mcg disintegrating 5,000 mcg PO DAILY Supplement 01/06/17 11/14/23 11/13/23 History
tablet
calcium carbonate 500 mg PO DAILY Supplement 01/06/17 11/14/23 11/13/23 History
sertraline 50 mg tablet 150 mg PO DAILY Depression 01/06/17 11/14/23 11/13/23 History
zolpidem 10 mg tablet 10 mg PO HS Sleep 01/06/17 11/14/23 11/13/23 History
albuterol sulfate 90 mcg/actuation 2 puff inhalation R Q4HPRN PRN sob 05/31/18 11/14/23 08/17/22 06:00 History
aerosol inhaler
atorvastatin 40 mg tablet 40 mg PO QPM High Cholesterol 05/31/18 11/14/23 11/13/23 History
cholecalciferol (vitamin D3) 50 2,000 units PO DAILY Supplement 05/31/18 11/14/23 11/13/23 History
mcg (2,000 unit) tablet
lansoprazole 30 mg capsule,delayed 30 mg PO DAILY Gastrointestinal 05/31/18 11/14/23 11/13/23 History
release (Prevacid) Issue
multivitamin with folic acid 400 1 tab PO DAILY Supplement 05/31/18 11/14/23 11/13/23 History
mcg tablet (Tab-A-Kashif)
celecoxib 200 mg capsule 200 mg PO BID Pain 05/04/20 11/14/23 11/13/23 History
budesonide 160 mcg-glycopyr 9 2 inh inhalation R BID 08/17/22 11/14/23 08/17/22 08:00 History
mcg-formot 4.8 mcg/actuation HFA Lung/Breathing Issues
inhaler (Breztri Aerosphere)
oxycodone-acetaminophen 10 mg-325 1 tab PO Q8HPRN PRN severe pain 08/17/22 11/14/23 11/14/23 History
mg tablet (Percocet)
Lactobac no.2-Bifidobac no.1-S. 1 cap PO DAILY Gastrointestinal 11/14/23 11/14/23 11/13/23 History
thermo 112.5 billion cell capsule Issue
(Visbiome)
Review of Systems
-
Unable to Obtain full review of systems at this time due to: Other (Per HPI)
Vitals / Labs / Diagnostic Testing
Vital Signs
Temp Pulse Resp BP Pulse Ox
98.1 F 90 18 112/61 96
11/15/23 07:24 11/15/23 07:18 11/15/23 07:24 11/15/23 04:56 11/15/23 07:24
Lab Data
11/15/23 04:56
11/15/23 04:55
Laboratory Results
11/14/23 11/14/23 11/15/23
14:48 22:34 04:55
PT 16.3 H 17.3 H
INR 1.33 1.43
APTT 48.8 H 66.1 H 77.8 H
11/15/23
04:55
PT
INR
APTT Cancelled
Microbiology
11/15/23 00:06 Urine Legionella Urinary Antigen - Final
Negative for Legionella pneumophila Serogroup 1 antigen.
A negative result does not rule out the possiblity of
Legionella infection due to other serogroups or species of
Legionella. Clinical correlation is recommended.
Diagnostic Testing:
Physical Exam
-
Exam:
Well-nourished and well-developed in no apparent distress
HEENT-atraumatic, normocephalic
Neck-supple, no JVD, no bruit
Heart-regular rate and rhythm-no murmurs, rubs or gallops
Chest with diminished breath sounds, prolonged expiratory time, few expiratory rhonchi and wheezes and rare crackles
Abdomen-soft, mild epigastric tenderness with guarding but no rebound
Extremities-no cyanosis, clubbing, edema and good peripheral pulses
Integument-intact, no rashes, lesions or ecchymosis
Neurology-alert and oriented, nonfocal motor and sensory exam
Assessment
-
78-year-old female with a history of COPD, 27-eymv-xgtm smoking history quit 10 years ago, hypertension, hyperlipidemia, reflux who presents with progressive shortness of breath diagnosed with multifocal pneumonia and NSTEMI-pulmonary consulted for
pneumonia/COPD 11/15/2023
Community-acquired pneumonia
COPD with mild acute exacerbation
NSTEMI with elevated troponin-troponin peak 2.4
Hypokalemia
Leukocytosis-WBC 15.2
Mild normocytic anemia-hemoglobin 10.4
Hyperglycemia-blood sugar 199
Conditions present prior to admission:
COPD.
Former cbqiwc-77-64-pack-year quit 10 years ago.
Pulmonary nodule
'Tracheal webbing and serial CT chest'-bronchoscopy July 2022 unrevealing, significant secretions,
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
Hypertension.
Hyperlipidemia.
GERD.
Depression.
Fibromyalgia.
Chronic back pain/spinal stenosis.
Peripheral neuropathy.
Diverticulosis.
Thyroid nodule.
Hysterectomy. Right hip replacement. Carpal tunnel. Rotator cuff.
Plan
Decompensation likely due to pneumonia and mild COPD exacerbation
Supplemental oxygen
Nebulizers as needed
Symbicort and Spiriva continue
Aspiration precautions
Mucolytics
Mucus clearing devices if needed
Hold on steroids-begin if increased wheezing
Check cultures
RSV culture negative
Legionella pending
Influenza negative
Sputum culture
Empiric antibiotics-Rocephin and azithromycin
Monitor leukocytosis
Consider infectious disease consultation if no improvement
Cardiology evaluation
Trend troponin
Heparin drip
Nitroglycerin as needed
Gentle diuresis
Monitor renal function, electrolytes, intake/output, lower extremity edema and weight
Replace electrolytes as needed
Echocardiogram 11/15/2023-pending
Monitor blood sugar
Insulin supplementation as needed
DVT prophylaxis-on heparin
GI prophylaxis-on PPI
Nutrition
Early mobilization
Reviewed with nursing
Originally seen by Dr. Russell in 2016 but recently followed by Amy Rodriguez and Dr. Boykin on 08/18/2023--has appointment 12/22/2023 at 11:[address] Campoverde
May 2024 low-dose lung cancer screening CT chest has also been recommended and prescription has been provided
Diagnostic data:
Chest x-ray 11/14/2023-COPD changes, 2.3 cm soft tissue nodule projecting lower right lung
CT [id number] 01/10/18: Tiny 2 mm nodule anterior right upper lobe which is unchanged, no other pulmonary nodules, no adenopathy or acute process. Study compared to March 15, 2016 and September 22, - Bronchoscopy- No abnormal finding
within the lower neck. Significant amount of soomewhat tenacious bronchial secretions at the tracheal and bilateral airways. Secretions white to yellow in color. No endobronchial abnormalities and trachea or bilateral airways. Respiratory culture
with usual respiratory jaz. AFB smear culture negative. Fungus mold identified as Trametes Hirsuta/Trametes versicolor. Basidiomyceteous moulds are enviromental molds.5/
CT chest-10/2022- CT Chest- trivial well-being and nodularity grossly unchanged compared to prior CT. Multi thyroid nodules. Changes of mild central lobar emphysema. Mild coronary artery calcification. Trachea nodules measuring up to 6 mm in
diameter. Additional endobronchial nodule seen wiithin the right main stem bronchus. Measuring [address] [id number]- Endobronchial nodule seen ~8 by 3 mm. Associated with thin web which extends between left main stem bronchus and midportion of trachea. No significant narrowing of trachea. Tiny RUL nodule ~2mm which is unchanged.video swallow-
06/11/2023- VSE- transient penetration with thin liquid barium by spoon. Inconsistent transient penetration with no aspiration with thin liquid barium by cough. Otherwise no evidence for aspiration.
CT chest- 05/28/2023- CT Chest- Mild subpleural consolidation/groundglass densities and small tree and bud nodules in the dependent bilateral lower lobes, new from prior. No pleural effusion. No adenopathy. Mild tracheal webbing and nodularity,
slightly change in orientation compared to prior suggesting inspissated secretions.
CT chest 11/14/2023-no evidence for PE, bilateral tree-in-bud opacifications consistent with multifocal pneumonia, prominent mediastinal and bilateral hilar lymph nodes likely reactive
Echocardiogram- 07/2022- ECHO- essentially normal. No valvular disease. EF 55-60%
[id number]-FVC 2.58, 83 Fev1 1.59, 68 11 BD response ratio 62 TLC 92 DLCO [id number]- PFT- FVC 2.58,82 Fev1 1.61,68 8BD response rati0 65 TLC 86 DLCO 81PFT:02/14/2019 FVC: 2.47 L / 78 %; FEV1: 1.60 L / 67 % ; Ratio: 65 %; BD response: NoTLC:
4.77 L/89% DLCO: 78%
PFT 08/18/23-FEV1 1.35-64%, FVC 2.3-81%, temperature percent BD response, TLC 116%, RV 65%, DLCO 62%, DLCO/VA 78%.� Moderate obstruction, significant BD response, moderate to severe hyperinflation and moderate reduction in diffusing capacity.
Data Reviewed
-
PFT: Report reviewed by me
EKG: Report reviewed by me
Radiology: Image personally visualized and interpreted and Report reviewed by me
CT Scan: Image personally visualized and interpreted and Report reviewed by me
Medical Tests (Nuc Med, Echo etc): Report reviewed by me
Labs: Labs reviewed by me
Old Records: Reviewed
Total Time Spent with Patient (in minutes): 55
[2023-11-15] MEDS: KCL 40 MEQ PO ×2 (09:54→12:18)
[2023-11-15] MEDS: PLAVIX 75 MG PO (09:54)
[2023-11-15] MEDS: LASIX 40 MG IV (09:55)
[2023-11-15] MEDS: NSS IV (10:06)
[2023-11-15 10:09] LABS: APTT 62.2 Sec (23.4-35.0)
[2023-11-15 10:27] LABS: Procalcitonin 0.45 ng/ml (0.0-0.25)
[2023-11-15 11:00] LABS: TSH Reflex To Free T4 0.11 uIU/ml (0.47-4.68)
[2023-11-15] MEDS: STERILE WATER FOR INJECTION 10 ML IV (12:17)
[2023-11-15] MEDS: ROCEPHIN 1000 MG IV (12:18)
--- NOTE | 2023-11-15 12:50 | CM ---
Chart reviewed. Patient is independent of ADLS, lives with her in a 1 [address], 2 [facility], 0 DME. Plan is for the patient to return home. CM to follow
[2023-11-15] MEDS: HEPARIN 25000 UNITS/250 ML IV (14:26)
--- NOTE | 2023-11-15 14:38 | PTCARENOTE ---
Patient in chair for most of day, returned to bed. SOB with activity, oxygen increased to 3 liters NC with activity. Assisted to commode, voiding yellow urine. Did have one episode of loose stool this afternoon. SR HR 90's. Epigastric pressure and
shortness of breath with activity, does not radiate. Lights dimmed in bed resting, call mack in reach
--- NOTE | 2023-11-15 15:17 | W.PN.UPDATE ---
Update Note
Progress Note Update
Decrease of EF to 45% with global hypokinesis noted on Echo - cont mgmt as per cardio. Cont Heparin
[2023-11-15 16:39] LABS: APTT 79.8 Sec (23.4-35.0)
[2023-11-15] MEDS: LIPITOR 40 MG PO (17:45)
[2023-11-15] MEDS: ROXICODONE 10 MG PO (19:23)
[2023-11-15] MEDS: TYLENOL 650 MG PO (19:25)
[2023-11-15] MEDS: COZAAR 100 MG PO (22:06)
[2023-11-15] MEDS: MELATONIN 12 MG PO (22:06)
[2023-11-15] MEDS: KCL 20 MEQ PO (22:06)
[2023-11-15 22:29] LABS: APTT 63.1 Sec (23.4-35.0)
[2023-11-16] VITALS (17 sets, daily range): BP systolic 94–149; BP diastolic 56–93; BMI 29.0
[2023-11-16 05:21] LABS: % Basophils 0.2 % (0-2); % Eosinophils 0.4 % (0-6); % Immature Granulocytes 0.9 % (0-0.5); % Lymphocytes 10.2 % (20.5-51.1); % Monocytes 5.5 % (1.7-9.3); % Neutrophils 82.8 % (42.2-75.2); Absolute Eosinophils 0.1 10^3/uL (0-0.7); Absolute Immature Granulocytes 0.1 10^3/uL (0-0.05); Absolute Lymphocytes 1.4 10^3/uL (1.2-3.4); Absolute Monocytes 0.8 10^3/uL (0.1-0.6); Absolute Neutrophils 11.5 10^3/uL (1.4-6.5); Hematocrit 29.5 % (37.0-47.0); Hemoglobin 9.8 g/dL (12.0-16.0); Mean Corp Hgb Conc. 33.2 g/dL (33.0-37.0); Mean Corpuscular Hgb 28.7 pg (27.0-31.0); Mean Corpuscular Volume 86.3 fL (81.0-99.0); Mean Platelet Volume 9.8 fL (7.4-10.4); Nucleated Red Blood Cells % 0 %; Platelet Count 304 10^3/uL (130-400); Red Blood Cell Count 3.42 10^6/uL (4.20-5.40); Red Cell Dist. Width 13.2 % (11.5-14.5); White Blood Cell Count 13.8 10^3/uL (4.8-10.8)
[2023-11-16 05:31] LABS: APTT 119.4 Sec (23.4-35.0)
[2023-11-16] MEDS: HEPARIN 25000 UNITS/250 ML IV (06:01)
[2023-11-16 06:20] LABS: ALT (SGPT) 54 U/L (0-35); AST (SGOT) 72 U/L (14-36); Albumin 3.2 g/dl (3.5-5.0); Alkaline Phosphatase 167 U/L (38-126); Blood Urea Nitrogen 29 mg/dl (7-17); Carbon Dioxide 26 mmol/L (22-30); Chloride 104 mmol/L (98-107); Estimated Creatinine Clearance 61 ml/min; Glucose 147 mg/dl (70-99); Sodium 139 mmol/L (135-145); Total Bilirubin 0.3 mg/dl (0.2-1.3); Total Protein 5.8 g/dl (6.3-8.2); eGFR > 60.00
[2023-11-16] MEDS: SPIRIVA RESPIMAT 2.5 MCG 2 PUFF INH (07:33)
[2023-11-16] MEDS: SYMBICORT 160/4.5 MCG INHALER 2 PUFF INH ×2 (07:34→19:23)
[2023-11-16] MEDS: ZOLOFT 150 MG PO (08:18)
[2023-11-16] MEDS: PROTONIX 40 MG PO (08:19)
[2023-11-16] MEDS: LASIX 40 MG IV (08:19)
[2023-11-16] MEDS: PLAVIX 75 MG PO (08:19)
[2023-11-16] MEDS: LOW STRENGTH ASPIRIN 81 MG PO (08:19)
[2023-11-16] MEDS: ZITHROMAX INFUSION 250 IV (08:28)
--- NOTE | 2023-11-16 09:05 | PN.CDI ---
Addendum entered and electronically signed by Maurilio Reyes MD 11/16/23 17:15:
No sepsis on my assessment
Original Note:
CDI
- -
CDI:
Physician Documentation Request
Admit Date: 11/14/23 19:28
Dear Doctor Amy,
Please review the following and provide your response in the progress notes.
Clinical Indicators:
H+P, 11/13
#Acute hypoxic respiratory failure, multifactorial associated with
#...Multifocal Pneumonia & NSTEMI, in setting of underlying comorbidity of COPD
PN, 11/14
#CAP with unspecified organism
#...Rocephin/Azithromycin
Initial VS: 11/13
Selected Entries
11/14/23
13:47
Temp 101.1 F H
Pulse 115
Resp Rate 20
Blood pressure 153/87
SaO2 91
Laboratory Tests
11/14/23 11/15/23 11/16/23
14:02 04:56 05:08
WBC 15.2 H 14.4 H 13.8 H
Laboratory Tests
11/14/23 11/15/23
14:02 09:38
Procalcitonin 0.45 H
Laboratory Tests
11/14/23 11/14/23 11/15/23
14:02 20:20 04:55
Troponin I 2.410 H* 1.810 H* 0.952 H*
Please clarify which of the following most accurately describes the status of the patient's infection:
Sepsis, POA
Severe Sepsis, POA
- Sepsis with associated acute organ dysfunction, such as renal or respiratory failure
- Documentation should indicate the association between the sepsis
and the organ dysfunction
Localized Infection Only, Without Systemic Illness
- indicate the site/source, such as UTI, pneumonia etc.
Other(please specify)
Sepsis
- Systemic manifestations of infection, with 2 or more SIRS criteria which include:
- Fever >100.4 degrees F or hypothermia < 96.8 degrees F
- Leukocytosis - WBC > 12,000 or leukopenia - WBC < 4,000 or > 10% bands
- Tachycardia > 90 beats per minute
- Tachypnea - RR > 20 breaths per minute or PaCO2 , 32mmHg
Source: Merck Manual 2013
- Indicate the known or suspected underlying infection, such as UTI, pneumonia or cellulitis
Severe Sepsis
- Sepsis with associated acute organ dysfunction, such as renal or respiratory failure
- Documentation should indicate the association between the sepsis and the organ dysfunction
Use of terms such as suspected, likely, concern for, or probable (associated with a specific diagnosis that is being evaluated, monitored, or treated as if it exists) are acceptable and can be coded in the inpatient setting, when documented at the
time of discharge.
Thank you,
Kelly Valente RN BSN CCDS
CDI Specialist
please contact via tiger text
Please use your independent medical judgment in providing your response.
--- NOTE | 2023-11-16 09:16 | W.PN.PUL.V3 ---
Today's Communication / Plan
-
Begin steroids
Begin nebulizers
Continue inhalers
Antibiotics
Diuresis as tolerated
Considering catheterization
Assessment
-
78-year-old female with a history of COPD, [id number] smoking history quit 10 years ago, hypertension, hyperlipidemia, reflux who presents with progressive shortness of breath diagnosed with multifocal pneumonia and NSTEMI-pulmonary consulted for
pneumonia/COPD 11/15/2023
Community-acquired pneumonia
COPD with mild acute exacerbation
NSTEMI with elevated troponin-troponin peak 2.4
Hypokalemia
Leukocytosis-WBC 15.2
Mild normocytic anemia-hemoglobin 10.4
Hyperglycemia-blood sugar 199
Conditions present prior to admission:
COPD.
Former [id number]-pack-year quit 10 years ago.
Pulmonary nodule
'Tracheal webbing and serial CT chest'-bronchoscopy July 2022 unrevealing, significant secretions,
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
Hypertension.
Hyperlipidemia.
GERD.
Depression.
Fibromyalgia.
Chronic back pain/spinal stenosis.
Peripheral neuropathy.
Diverticulosis.
Thyroid nodule.
Hysterectomy. Right hip replacement. Carpal tunnel. Rotator cuff.
Plan
Decompensation likely due to pneumonia and COPD exacerbation-significant prolonged expiratory time end expiratory wheezes/rhonchi
Supplemental oxygen
Nebulizers as needed
Symbicort and Spiriva continue
Aspiration precautions
Mucolytics
Mucus clearing devices if needed
Begin steroids with significant wheezing on exam
Check cultures
RSV culture negative
Legionella pending
Influenza negative
C. difficile negative
Sputum culture-pending
Empiric antibiotics-Rocephin and azithromycin
Monitor leukocytosis
Consider infectious disease consultation if no improvement
Cardiology evaluation
Trend troponin
Heparin drip
Nitroglycerin as needed
Gentle diuresis
Monitor renal function, electrolytes, intake/output, lower extremity edema and weight
Replace electrolytes as needed
Echocardiogram 11/15/2023--EF 40-45%, distal septal hypokinesis, note EF reduced from baseline
Consider cardiac catheterization
Monitor blood sugar
Insulin supplementation as needed-especially as steroids initiated
DVT prophylaxis-on heparin
GI prophylaxis-on PPI
Nutrition
Early mobilization
Reviewed with nursing
Originally seen by Dr. Russell in 2017 but recently followed by Amy Rodriguez and Dr. Boykin on 08/18/2023--has appointment 12/22/2023 at 11:[address] Boykin
May 2024 low-dose lung cancer screening CT chest has also been recommended and prescription has been provided
Diagnostic data:
Chest x-ray 11/14/2023-COPD changes, 2.3 cm soft tissue nodule projecting lower right lung
CT [id number] 01/10/18: Tiny 2 mm nodule anterior right upper lobe which is unchanged, no other pulmonary nodules, no adenopathy or acute process. Study compared to March 15, 2016 and September 22- Bronchoscopy- No abnormal finding
within the lower neck. Significant amount of soomewhat tenacious bronchial secretions at the tracheal and bilateral airways. Secretions white to yellow in color. No endobronchial abnormalities and trachea or bilateral airways. Respiratory culture
with usual respiratory jaz. AFB smear culture negative. Fungus mold identified as Trametes Hirsuta/Trametes versicolor. Basidiomyceteous moulds are enviromental molds.5/
CT chest-10/2022- CT Chest- trivial well-being and nodularity grossly unchanged compared to prior CT. Multi thyroid nodules. Changes of mild central lobar emphysema. Mild coronary artery calcification. Trachea nodules measuring up to 6 mm in
diameter. Additional endobronchial nodule seen wiithin the right main stem bronchus. Measuring [address] [id number]- Endobronchial nodule seen ~8 by 3 mm. Associated with thin web which extends between left main stem bronchus and midportion of trachea. No significant narrowing of trachea. Tiny RUL nodule ~2mm which is unchanged.video swallow-
06/11/2023- VSE- transient penetration with thin liquid barium by spoon. Inconsistent transient penetration with no aspiration with thin liquid barium by cough. Otherwise no evidence for aspiration.
CT chest- 05/28/2023- CT Chest- Mild subpleural consolidation/groundglass densities and small tree and bud nodules in the dependent bilateral lower lobes, new from prior. No pleural effusion. No adenopathy. Mild tracheal webbing and nodularity,
slightly change in orientation compared to prior suggesting inspissated secretions.
CT chest 11/14/2023-no evidence for PE, bilateral tree-in-bud opacifications consistent with multifocal pneumonia, prominent mediastinal and bilateral hilar lymph nodes likely reactive
Echocardiogram- 07/2022- ECHO- essentially normal. No valvular disease. EF 55-60%
[id number]-FVC 2.58, 83 Fev1 1.59, 68 11 BD response ratio 62 TLC 92 DLCO [id number]- PFT- FVC 2.58,82 Fev1 1.61,68 8BD response rati0 65 TLC 86 DLCO 81PFT:02/14/2019 FVC: 2.47 L / 78 %; FEV1: 1.60 L / 67 % ; Ratio: 65 %; BD response: NoTLC:
4.77 L/89% DLCO: 78%
PFT 08/18/23-FEV1 1.35-64%, FVC 2.3-81%, temperature percent BD response, TLC 116%, RV 65%, DLCO 62%, DLCO/VA 78%.� Moderate obstruction, significant BD response, moderate to severe hyperinflation and moderate reduction in diffusing capacity.
Subjective Data
-
Date of Service:
Date of Service: November 16, 2023
Chief Complaint: Pulmonary Follow Up and Dyspnea Follow Up
Subjective:
Complains of some wheezing, some chest congestion, productive cough, no chest pain or abdominal pain.
Review of Systems
General: Other (Per HPI)
Objective Data
Data Reviewed
Vital Signs / I&O:
Vital Signs
Temp Pulse Resp BP Pulse Ox
98.3 F 78 16 113/62 98
11/16/23 08:10 11/16/23 07:35 11/16/23 07:35 11/16/23 04:53 11/16/23 08:00
Intake and Output
11/15/23 11/16/23 11/17/23
06:59 06:59 06:59
Intake Total 250 / 250 250 / 250 100 / 100
Output Total 1575 / 1575 850 / 850
Balance -1325 / -1325 -600 / -600 100 / 100
SaO2: 98
Nasal Cannula flow liters per minute: 3
Physical Exam
General: Respiratory Distress (n) and Comfortable
HEENT: Normocephalic, Anicteric and Moist Mucous Membranes
Cardiovascular: Regular Rhythm
Respiratory: Wheeze (Expiratory), Crackles (Rare basilar), Rhonchi (Expiratory), Non-Labored Respirations, Accessory Resp Muscle Use (n) and Stridor (n)
GI: Soft, Non Distended and Non Tender
Neurology: Awake, Alert and No Motor Deficits
Skin: Warm, Good Color, Cyanosis (n), Jaundice (n) and Rash (n)
Labs/Micro/Reports
Lab Data
11/16/23 05:08
11/16/23 05:08
Laboratory Results
11/15/23 11/15/23 11/15/23
09:38 16:22 22:05
APTT 62.2 H 79.8 H 63.1 H
11/16/23
05:08
APTT 119.4 H
Microbiology
11/15/23 19:17 Feces/Stool C. difficile GDH Antigen & Toxins - Final
Negative for toxigenic C.difficile
11/14/23 17:23 Blood/Venous Blood Culture - Preliminary
No Growth in 24 hours- Final report to follow
11/15/23 09:38 Urine Streptococcus pneumoniae Antigen (M - Final
Negative for Streptococcus pneumoniae antigen.
A negative result does not exclude infection with
Streptococcus pneumoniae. Clinical correlation is
recommended.
11/15/23 10:43 Nasal Swab Respiratory Syncytial Virus Culture - Final
Negative for Respiratory Syncytial Virus.
A false negative result may be obtained with a specimen
collected early in the acute phase. If symptoms persist, a
new specimen should be tested.
11/15/23 09:38 Nasal Swab Influenza Types A & B ([facility]) - Final
Negative for Influenza A & B, NAAT
Negative results must be combined with clinical observations
and patient history.
Nucleic Acid Amplification test (NAAT)performed on the
[employer] platform.
11/15/23 00:06 Urine Legionella Urinary Antigen - Final
Negative for Legionella pneumophila Serogroup 1 antigen.
A negative result does not rule out the possiblity of
Legionella infection due to other serogroups or species of
Legionella. Clinical correlation is recommended.
[2023-11-16] MEDS: ZOFRAN 4 MG IV (09:18)
[2023-11-16 09:43] LABS: Lipase 112 U/L (23-300)
[2023-11-16] MEDS: DECADRON 4 MG IV ×2 (10:27→18:00)
[2023-11-16] MEDS: VISBIOME 2 CAP PO (10:27)
--- NOTE | 2023-11-16 10:57 | W.PN.CARDCBS ---
Addendum entered and electronically signed by Epifanio Kulkarni DO 11/16/23 11:31:
I saw and examined the patient.
The Commercial Makeup Artist's note was reviewed and I agree with the note.
Comment:
Plan:
Cont IV diuresis
Cath today to eval coronary anatomy
Echo reviewed with pt
Azithromycin stopped with nausea, vomiting and diarrhea.
Cont pulm toilet including steroids for COPD exacerbation as per pulm
Discussed with interventional cardiology.
Original Note:
Today's Communication / Plan
-
Azithromycin discontinued after discussion with primary service continue ceftriaxone
Initiate steroids per pulmonary
Abdominal ultrasound pending
Continue diuresis
Cardiac catheterization today
Impression / Plan
-
PCP: Linette Hernandez
Chair: Evaluated by Dr. Urban 2015, no web page designer since
Impression:
Presented 11/14/2023 with progressively worsening chest tightness, shortness of breath, cough, orthopnea, PND
Acute hypoxic respiratory insufficiency
COPD exacerbation
Bilateral pneumonia
Acute heart failure preserved ejection fraction, proBNP 10,600
Abnormal troponin, peaked 2.41
NSTEMI, suspect late presentation
Hypertension
Hyperlipidemia
COPD
GERD
Depression
Fibromyalgia
Spinal stenosis
Peripheral neuropathy
Diverticulitis
Thyroid nodule
Echo 11/15/2023: EF 40 to 45% with anteroseptal and anterior hypokinesis. Possible distal septal hypokinesis. Mild concentric LVH. Mild MR, mild TR with PAP 29 mmHg
Echo 08/18/2022: EF 55 to 60% with no significant valvular disease
Lexiscan nuclear stress test 04/13/2016: Small fixed defect in inferior segment consistent with infarction versus soft tissue attenuation/diaphragmatic attenuation, EF 54%
Plan:
-Presented 11/14/2023 with progressively worsening chest tightness, shortness of breath, cough, orthopnea, PND.
-Acute hypoxic respiratory insufficiency which is likely multifactorial secondary to COPD exacerbation, acute heart failure and bilateral pneumonia. procal 0.45 Symptomatically she is improving.
-Patient developed worsening nausea 11/15/2023 with associated nausea and vomiting a.m. of 11/16/2023 as well as diarrhea. C. difficile negative. Symptoms started after IV antibiotics. Nausea vomiting improved with 1 dose of Zofran 11/16/2023.
Discussed with primary service will discontinue azithromycin but continue ceftriaxone.
-Abdominal ultrasound ordered by primary service, results pending
-Still noted to be wheezing on examination 11/16/2023. Evaluated by pulmonary who will begin steroids as well as continue nebulizers for COPD
-Acute heart failure preserved ejection fraction, proBNP 10,600
-Symptomatically patient improving. However weight by standing scale up 5 pounds overnight. Unclear if this is accurate. Continue IV diuresis. Hesitant to give extra dose of diuretic today given diarrhea/nausea vomiting earlier today. Pressures
can be evaluated with catheterization later today.
-Follow renal function, creatinine stable at 0.8
-Replete potassium, K+ 4.0, followed closely given diarrhea
-Abnormal troponin, peaked 2.41 on admission then trended down. EKG shows sinus rhythm with concern for age-indeterminate septal infarction. Patient currently chest pain-free, nitro drip weaned off. Suspect NSTEMI, with late presentation OR.
-Echo shows reduced ejection fraction of 40 to 45% with anteroseptal and anterior hypokinesis. Proceed with Cardiac catheterization 11/16/2023
-Continue IV heparin
HPI 11/15/2023:
Patient is a 78-year-old female with past medical history significant for COPD, hypertension, hyperlipidemia, GERD who presents to emergency department with chest heaviness associated with shortness of breath. Patient reports intermittent
exertional chest discomfort like a band around her chest for several months and dyspnea on exertion. Over the last week she noted worsening cough associated with shortness of breath and chest pressure/heaviness with minimal activity. Wednesday [place]
was at the beach and was unable to walk several steps before having symptoms symptoms continued at rest. She continued to have chest heaviness, cough, shortness of breath, orthopnea and PND throughout the weekend prompting her to come to the
emergency department last evening 11/14/2023. On presentation to emergency department noted to have elevated troponin at 2.41. EKG showed sinus tachycardia with nonspecific T wave abnormality in lateral lead with septal infarct age indeterminate.
Started on IV heparin and NTG drip. ProBNP 10,600. She received IV Lasix [address] of chest was negative for PE. There were bilateral groundglass opacities consistent for multifocal pneumonia as well as prominent mediastinal and bilateral hilar
lymph nodes. She was given dose of IV steroids and placed on Rocephin and azithromycin.
Progress Note - Chair
Subjective
Date of Service: November 16, 2023
Patient seen and examined. Patient sitting in chair feeling much better after receiving IV Zofran. No further nausea vomiting or diarrhea after discontinuation of IV azithromycin
Objective
Labs:
11/16/23 05:08
11/16/23 05:08
Labs
Hgb 9.8 g/dL (12.0-16.0) L 11/16/23 05:08
Hct 29.5 % (37.0-47.0) L 11/16/23 05:08
Plt Count 304 10^3/uL (130-400) D 11/16/23 05:08
PT 17.3 Sec (11.4-14.6) H 11/15/23 04:55
INR 1.43 11/15/23 04:55
APTT 119.4 Sec (23.4-35.0) H 11/16/23 05:08
Sodium 139 mmol/L (135-145) 11/16/23 05:08
Potassium 4.0 mmol/L (3.5-5.1) 11/16/23 05:08
BUN 29 mg/dl (7-17) H 11/16/23 05:08
Creatinine 0.8 mg/dL (0.6-1.0) 11/16/23 05:08
Glucose 147 mg/dl (70-99) H 11/16/23 05:08
Troponins
11/14/23 11/14/23 11/15/23
14:02 20:20 04:55
Troponin I 2.410 H* 1.810 H* 0.952 H*
Vital Signs and I&O:
Vital Signs
Temp Pulse Resp BP Pulse Ox
98.3 F 86 16 120/65 98
11/16/23 08:10 11/16/23 09:00 11/16/23 07:35 11/16/23 07:33 11/16/23 09:16
Vital Signs
Temp Pulse Resp BP Pulse Ox
98.3 F 86 16 120/65 98
11/16/23 08:10 11/16/23 09:00 11/16/23 07:35 11/16/23 07:33 11/16/23 09:16
Intake & Output
11/14/23 11/15/23 11/16/23 11/17/23
06:59 06:59 06:59 06:59
Intake Total 250 / 250 250 / 250 100 / 100
Output Total 1575 / 1575 850 / 850
Balance -1325 / -1325 -600 / -600 100 / 100
Physical Exam
Physical Exam
GEN: No distress, awake, Ox3
HEENT: supple, anicteric, mmm
LUNGS: Diffuse faint bilateral wheezes with few scattered rhonchi, wearing 3 L of oxygen
CV: Reg, S1/S2, no murmur, no rub or gallop
ABD: soft, BS+, NT/ND
EXT: No edema, clubbing or cyanosis
NEURO: Gross non-focal
SKIN: No rash, warm, dry, pink
--- NOTE | 2023-11-16 11:21 | ITS.CL.CATH ---
Lpn Rn - Catheterization
Cardiac Catheterization
Procedure Report:
LEFT HEART CATHETERIZATION AND CORONARY INTERVENTION
Date of Procedure: November 16, 2023
Referring: Dr. Epifanio Kulkarni
PROCEDURES:
1. Left heart catheterization, coronary angiogram.
2. Ultrasound-guided access
3. Functional physiologic testing using iFR of mid LAD.
4. Successful percutaneous coronary artery intervention of IFR positive 60-70% mid LAD stenosis with one 3.5 x 12 mm Medtronic [place] frontier drug-eluting stent, postdilated with a 3.5 x 8 mm NC trek balloon at 18 katya with an excellent angiographic
result.
INDICATION: Concern for NSTEMI
ACCESS: Right radial artery, 6 [place] sheath, under ultrasound guidance
HEMODYNAMICS : (mmHg)
AO (s/d) : 126/64
LV (s/d) : 125/11
LVEDP : 20
CORONARY FINDINGS
DOMINANCE: Right
LEFT MAIN: The left main artery is a large-caliber vessel which gives rise to the left anterior descending artery and the left circumflex artery. There is minimal luminal irregularities.
LEFT ANTERIOR DESCENDING: The left anterior descending artery is a large-caliber vessel which gives rise to 2 small caliber diagonal branches as it courses to the anterior interventricular groove and wraps around the apex. There is an eccentric 60
to 70% stenosis just distal to the first diagonal branch which was IFR positive at 0.88 and therefore decision was made to proceed with intervention.
CIRCUMFLEX: The left circumflex artery is a medium caliber vessel which gives rise to 1 major obtuse marginal branch. There is minimal luminal irregularities.
RIGHT CORONARY ARTERY: The right coronary artery is a large-caliber, dominant vessel which gives rise to the right posterior descending artery and the right posterolateral system. There is minimal luminal irregularities.
HEMODYNAMIC ASSESSMENT OF THE MID LAD WITH A Meraki OMNI WIRE: The origin of the left coronary artery was cannulated with a 6 Fr EBU 3.5 guide catheter. Intravenous heparin was administered and the ACT was followed during the procedure. Two
hundred micrograms of intracoronary nitroglycerin was given through the guide catheter. A Wayne Omni wire was advanced to the guide catheter tip and normalized just outside guide catheter. The Omni wire was then carefully manipulated across the
stenosis in the mid LAD with the iFR below the ischemic threshold serially measuring 0.88 x 3. The Omni wire was then pulled back to the guide catheter where the Pd/Pa measured 1.0 confirming no baseline drift in pressure readings
CORONARY INTERVENTION: With positive IFR in the setting of mild LV dysfunction and wall motion abnormalities in the LAD territory, decision was made to proceed with percutaneous coronary artery intervention. Additional heparin was given to maintain
a therapeutic ACT throughout the case. Using the same Wayne Omni wire, the lesion was directly stented using a 3.5 x 12 mm Medtronic [place] frontier drug-eluting stent and successfully postdilated using a 3.5 x 8 mm NC trek balloon at 18 katya with
an excellent angiographic result. MARCIA-3 flow was present at the end of the case. No acute complications. Patient was loaded with 180 mg of Brilinta at the end of the case.
SEDATION: 53 minutes of procedural sedation was utilized. An independent medical record clerk was present to assist with and help manage the patient's level of consciousness and physiologic status.
RADIATION SUMMARY: Fluoro Time (min): 6.5, Dose (mGy): 655.8, DAP (Gy.cm2) : 38.29
Closure Device: Vascular band over right radial artery, 10 cc of air.
CONCLUSIONS
1. Successful percutaneous coronary artery intervention of IFR positive 60-70% mid LAD stenosis with one 3.5 x 12 mm Medtronic [place] frontier drug-eluting stent, postdilated with a 3.5 x 8 mm NC trek balloon at 18 katya with an excellent angiographic
result.
2. Elevated LVEDP at 20 mmHg
RECOMMENDATIONS
1. Uninterrupted dual antiplatelet therapy with daily baby aspirin and Brilinta 90 mg twice daily along with high intensity statin. Using amlodipine as antianginal medication and holding off on beta-rosaline in the setting of known COPD. Continue
diuretics for elevated LVEDP.
2. Aggressive management of cardiovascular risk factors.
3. Wean radial band per protocol.
4. Referral for outpatient cardiac rehab.
Copy to: Dr. Epifanio Kulkarni
Soraya Gomez MD, FACC, [facility]
[2023-11-16 11:46] LABS: ACT-LR - POC 229 Seconds (116-155)
[2023-11-16 11:56] LABS: ACT-LR - POC 273 Seconds (116-155)
--- NOTE | 2023-11-16 12:50 | CM ---
Addendum entered by Kelly Ellis RN 11/16/23 12:56:
Patient is all good with pricing.
Original Note:
Pricing on Brilinta through the patient's [employer] ID# [id number] at $47 a month. I will place a free 30 day coupon in her red discharge folder.
[2023-11-16] MEDS: VIBRAMYCIN 260 MG IV ×2 (13:02→23:28)
[2023-11-16] MEDS: ROCEPHIN 1000 MG IV (13:52)
[2023-11-16] MEDS: STERILE WATER FOR INJECTION 10 ML IV (13:52)
--- NOTE | 2023-11-16 15:19 | W.PN.HOSP.TC ---
Today's Communication/Plan
-
MRCP scheduled
cont DAPT
Assessment / Plan
Assessment / Plan
78yo F with insomnia, anxiety, HTN, COPD, HLD came with c/o 1 week of persistent worsening chest tightness, found elevated troponin and bilateral pneumonia. Cath done on 11/16/23 s/p PCI in LAD
A/P:
#CAP with unspecified organism
Rocephin/Doxy (switched from Azithromycin to avoid QTc prolongation)
COVID-19 neg, check RSV and influenza
Check Legionella and S.pneumo urinary Ag
Sputum Cx if possible
Procalcitonin
#Elevated troponin, concern for NSTEMI
Heparin stopped after cardiac cath
DAPT (Brilinta)
Serial troponin and EKG
Statin
Telemetry
Cardio consult
LDL WNL
#Subclinical hyperthyroidism
FT4 wnl
repeat thyroid studies in 2-3 weeks upon d/c
#Acute hypoxic insufficiency 2/2 mild CHF (unspecified) exacerbation
Echo: there is anterior, anteroseptal, and possible
distal septal hypokinesis. Ejection fraction is decreased from 55-60% to 40-
45%.
telemetry, Lasix, follow daily weights and electrolytes
wean off O2
#COPD, not in exacerbation
#RUL lung nodule
#Emphysema
COPnt bronchodilators
Size of the nodule does not corresponds to previously seen 2mm lesion - Pulm consult - has appt with pulm on 12/22/23
#PReDM
advise low carb diet
#Hypokalemia
replete and follow potassium
#Anxiety D/o
#Essential HTN
#HLd
cont home meds
#Chronic elevation of alk.phos
#Transaminitis
#Chronic CBD dilation
US showed dilation of CBD similar to the one in 2020
MRCP
#s/p cholecystectomy
#Mild anemia
#Thyroid nodules
at least since 2018
no RUQ pain, suspect bone origin
Recommend outpatient f/u with PCP
DVT ppx on hep
Full code
I have spent at least 58min reviewing chart, test results, communication with consultants and direct patient care
Anticipated Discharge: > 48 hours
Subjective/Interval History
-
Date of Service: November 16, 2023
Objective Data
-
Labs:
Laboratory Results
11/16/23 11/16/23
05:08 12:00
WBC 13.8 H
Hgb 9.8 L
Hct 29.5 L
Plt Count 304 D
APTT 119.4 H Pending
Sodium 139
Potassium 4.0
Chloride 104
Carbon Dioxide 26
BUN 29 H
Creatinine 0.8
Glucose 147 H
Calcium 9.0
Total Bilirubin 0.3
AST 72 H
ALT 54 H
Alkaline Phosphatase 167 H
Vital Signs:
Vital Signs
Temp Pulse Resp BP Pulse Ox
98.3 F 76 18 134/72 97
11/16/23 14:39 11/16/23 15:00 11/16/23 14:39 11/16/23 15:00 11/16/23 14:39
I&O
11/15/23 11/16/23 11/17/23
06:59 06:59 06:59
Intake Total 250 / 250 250 / 250 100 / 100
Output Total 1575 / 1575 850 / 850
Balance -1325 / -1325 -600 / -600 100 / 100
Physical Exam
-
General: No Apparent Distress
Respiratory: Clear to Auscultation
Cardiac: Regular Rhythm
GI: Soft, Nontender and Nondistended
Genito-urinary: No Costovertebral Tender
Musculoskeletal: No Clubbing, No Cyanosis and No Edema
Skin: Warm
Neuro: Awake, Alert, Oriented and AO x 3
Psych: Calm
[2023-11-16] MEDS: LIPITOR 40 MG PO (18:00)
[2023-11-16] MEDS: BRILINTA 90 MG PO (20:04)
[2023-11-16] MEDS: COZAAR 100 MG PO (22:55)
[2023-11-16] MEDS: MELATONIN 12 MG PO (23:28)
[2023-11-17] VITALS (9 sets, daily range): BP systolic 132–150; BP diastolic 64–91; PULSE 72–93; O2SAT 97; BMI 29.0
--- NOTE | 2023-11-17 03:07 | DOWNTIME ---
There was a [place] [employer] Downtime on 11/17/2023 from 0100 to 11/17/2023 at 0252. Downtime documentation of patient's care, including medication administrations, has been reconciled in the electronic record per guidelines. Refer to the
patient's paper chart under the miscellaneous tab to see printed paper medication records and downtime forms.
[2023-11-17] MEDS: DECADRON 4 MG IV (03:18)
[2023-11-17] MEDS: ROXICODONE 10 MG PO ×2 (03:23→11:29)
[2023-11-17] MEDS: TYLENOL 650 MG PO (03:23)
[2023-11-17 04:31] LABS: % Basophils 0.1 % (0-2); % Immature Granulocytes 1.9 % (0-0.5); % Lymphocytes 8.1 % (20.5-51.1); % Monocytes 4.1 % (1.7-9.3); % Neutrophils 85.8 % (42.2-75.2); Absolute Immature Granulocytes 0.3 10^3/uL (0-0.05); Absolute Lymphocytes 1.1 10^3/uL (1.2-3.4); Absolute Monocytes 0.6 10^3/uL (0.1-0.6); Absolute Neutrophils 11.6 10^3/uL (1.4-6.5); Hematocrit 32.5 % (37.0-47.0); Hemoglobin 11.2 g/dL (12.0-16.0); Mean Corp Hgb Conc. 34.5 g/dL (33.0-37.0); Mean Corpuscular Volume 84.2 fL (81.0-99.0); Mean Platelet Volume 9.8 fL (7.4-10.4); Nucleated Red Blood Cells % 0 %; Platelet Count 358 10^3/uL (130-400); Red Blood Cell Count 3.86 10^6/uL (4.20-5.40); Red Cell Dist. Width 13.1 % (11.5-14.5); White Blood Cell Count 13.5 10^3/uL (4.8-10.8)
[2023-11-17 04:57] LABS: ALT (SGPT) 63 U/L (0-35); AST (SGOT) 53 U/L (14-36); Albumin 3.5 g/dl (3.5-5.0); Alkaline Phosphatase 172 U/L (38-126); Blood Urea Nitrogen 24 mg/dl (7-17); Calcium 9.5 mg/dl (8.4-10.2); Carbon Dioxide 27 mmol/L (22-30); Chloride 105 mmol/L (98-107); Estimated Creatinine Clearance 70 ml/min; Glucose 158 mg/dl (70-99); Potassium 3.8 mmol/L (3.5-5.1); Sodium 139 mmol/L (135-145); Total Bilirubin 0.3 mg/dl (0.2-1.3); Total Protein 6.3 g/dl (6.3-8.2); eGFR > 60.00
--- NOTE | 2023-11-17 08:06 | W.PN.HOSP.TC ---
Today's Communication/Plan
-
MRCP
switch to oral Prednisone
Assessment / Plan
Assessment / Plan
78yo F with insomnia, anxiety, HTN, COPD, HLD came with c/o 1 week of persistent worsening chest tightness, found elevated troponin and bilateral pneumonia. Cath done on 11/16/23 s/p PCI in LAD. Mild COPD exacerbation with hypoxia improved witgh
steroids taper. LFT elevation with mild CBD dilation found pending MRCP
A/P:
#Multifocal CAP with unspecified organism
Rocephin/Doxy (switched from Azithromycin to avoid QTc prolongation)
COVID-19 neg, check RSV and influenza
Check Legionella and S.pneumo urinary Ag
Sputum Cx if possible
Procalcitonin
#Elevated troponin, concern for NSTEMI
Heparin stopped after cardiac cath
DAPT (Brilinta)
Serial troponin and EKG
Statin
Telemetry
Cardio consult
LDL WNL
#Subclinical hyperthyroidism
FT4 wnl
repeat thyroid studies in 2-3 weeks upon d/c
#Acute hypoxic insufficiency 2/2 mild CHF (unspecified) exacerbation
Echo: there is anterior, anteroseptal, and possible
distal septal hypokinesis. Ejection fraction is decreased from 55-60% to 40-
45%.
telemetry, Lasix, follow daily weights and electrolytes
wean off O2
#COPD, with mild exacerbation
#RUL lung nodule
#Emphysema
COPnt bronchodilators
Steroids taper
Size of the nodule does not corresponds to previously seen 2mm lesion - Pulm consult - has appt with pulm on 12/22/23
#PreDM
advise low carb diet
#Hypokalemia
replete and follow potassium
#Anxiety D/o
#Essential HTN
#HLd
cont home meds
#Chronic elevation of alk.phos
#Transaminitis
#Chronic CBD dilation
US showed dilation of CBD similar to the one in 2020
MRCP
#s/p cholecystectomy
#Mild anemia
#Thyroid nodules
at least since 2018
no RUQ pain, suspect bone origin
Recommend outpatient f/u with PCP
DVT ppx on hep
Full code
I have spent at least 58min reviewing chart, test results, communication with consultants and direct patient care
Anticipated Discharge: Within 24 hours
Subjective/Interval History
-
Date of Service: November 17, 2023
Objective Data
-
Labs:
Laboratory Results
11/17/23
03:34
WBC 13.5 H
Hgb 11.2 L
Hct 32.5 L
Plt Count 358
Sodium 139
Potassium 3.8
Chloride 105
Carbon Dioxide 27
BUN 24 H
Creatinine 0.7
Glucose 158 H
Calcium 9.5
Total Bilirubin 0.3
AST 53 H
ALT 63 H
Alkaline Phosphatase 172 H
Vital Signs:
Vital Signs
Temp Pulse Resp BP Pulse Ox
98.8 F 62 20 150/87 96
11/17/23 07:07 11/17/23 06:00 11/17/23 07:07 11/17/23 03:18 11/17/23 07:07
I&O
11/16/23 11/17/23 11/18/23
06:59 06:59 06:59
Intake Total 250 / 250 580 / 580
Output Total 850 / 850
Balance -600 / -600 580 / 580
Review of Systems
-
History Source: Patient
All other systems: Reviewed and negative
Physical Exam
-
General: No Apparent Distress
HEENT: Normocephalic, Atraumatic and Moist Mucous Membranes
Respiratory: Clear to Auscultation
GI: Soft, Nontender and Nondistended
Musculoskeletal: No Edema
Skin: Warm
Neuro: Awake, Alert, Oriented and AO x 3
--- NOTE | 2023-11-17 08:10 | W.PN.CARDCBS ---
Addendum entered and electronically signed by Soraya Gomez MD 11/17/23 12:44:
I saw and examined the patient.
The [employer]'s note was reviewed and I agree with the note.
Comment: Patient is doing well this morning. She is status post mid LAD PCI from yesterday with a 3.5 x 12 mm Medtronic [place] frontier drug-eluting stent with an excellent angiographic result.
No chest discomfort or shortness of breath this morning. Her right radial site looks stable without any acute issues.
Vital signs reviewed. Lab work reviewed from this morning. Hemoglobin stable. Renal function is normal.
On exam patient is out of bed into a chair in no acute distress, normal S1 and S2, no murmurs, rubs or gallops, no JVD, very fine bibasilar Rales but otherwise clear to auscultation, no wheezing, abdomen is soft, nontender, nondistended with active
bowel sounds, warm extremities without significant edema.
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
Recommendations:
1. Continue dual antiplatelet therapy with daily baby aspirin and Brilinta along with high intensity statin. After discussion with pulmonary with no wheezing on exam, we will trial beta-rosaline instead of calcium channel rosaline in the setting of
mild LV dysfunction to optimize goal-directed medical therapy. Continue to monitor closely from a respiratory standpoint given baseline COPD.
2. Defer management of intraductal papillary mucinous neoplasm to primary team/GI.
3. Add SGLT2 inhibitor in the setting of prediabetes and heart failure with reduced ejection fraction.
4. Continue IV diuresis today with plan to switch to p.o. diuretic starting tomorrow to optimize volume status in the setting of an elevated LVEDP yesterday on cath.
5. Outpatient cardiology follow-up will be set up with plan for repeat echocardiogram in 3 months to reassess LVEF.
Soraya Gomez MD, [facility], [place]
Original Note:
Today's Communication / Plan
-
Will try a dose of Toprol XL this afternoon, likely stop amlodipine if BB is tolerated
Start Jardiance 10 mg daily, need to check co-pay
Brilinta is $47/month
Impression / Plan
-
PCP: Linette Hernandez
Manager Domestic: Evaluated by Dr. Urban 2015, no book binder since
Impression:
Presented 11/14/2023 with progressively worsening chest tightness, shortness of breath, cough, orthopnea, PND
Acute hypoxic respiratory insufficiency
COPD exacerbation
Bilateral pneumonia
Acute HFrEF
Abnormal troponin, peaked 2.41
NSTEMI, suspect late presentation
CAD s/p 3.5 mm Nelson DEWAYNE to iFR positive mid LAD lesion 11/16/23
ICM EF 40-45% by echo 11/15/23
Hypertension
Hyperlipidemia
COPD
GERD
Depression
Fibromyalgia
Spinal stenosis
Peripheral neuropathy
Diverticulitis
Thyroid nodule
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
Lexiscan nuclear stress test 04/13/2016: Small fixed defect in inferior segment consistent with infarction versus soft tissue attenuation/diaphragmatic attenuation, EF 54%
Echo 08/18/2022: EF 55 to 60% with no significant valvular disease
Echo 11/15/2023: EF 40 to 45% with anteroseptal and anterior hypokinesis. Possible distal septal hypokinesis. Mild concentric LVH. Mild MR, mild TR with PAP 29 mmHg
Plan:
-Peak Troponin 2.41 on admission and trending down thereafter. patient had cath 11/16/23 with 3.5 mm Nelson DEWAYNE to iFR positive mid LAD lesion. New to Brilinta and appreciate help of CM on checking cost, patient is agreeable to $47/month.
-EF newly reduced at 40-45% this admission. Outpatient dose of losartan 100 mg HS has been continued.
-Patient with mild AE COPD and CAP this admission. Would like to add Toprol XL 12.5 mg daily, not actively wheezing, but patient reports wheezing as an outpatient. She does not recall being on a BB in the past. Will try a dose 11/17/23 afternoon.
-New to amlodipine 2.5 mg daily, if patient can tolerate Toprol XL then will likely stop amlodipine.
-Start Jardiance 10 mg daily.
-Weight is unchanged despite Lasix 40 mg IV daily since admission. LVEDP 20 by cath 11/16/23. Patient was not taking a diuretic prior to admission, but should go home on Lasix 40 mg PO daily.
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
HPI 11/15/2023: Patient is a 78-year-old female with past medical history significant for COPD, hypertension, hyperlipidemia, GERD who presents to emergency department with chest heaviness associated with shortness of breath. Patient reports
intermittent exertional chest discomfort like a band around her chest for several months and dyspnea on exertion. Over the last week she noted worsening cough associated with shortness of breath and chest pressure/heaviness with minimal activity.
[place] was [place] the beach and was unable to walk several steps before having symptoms symptoms continued at rest. She continued to have chest heaviness, cough, shortness of breath, orthopnea and PND throughout the weekend prompting her to come to
the emergency department last evening 11/14/2023. On presentation to emergency department noted to have elevated troponin at 2.41. EKG showed sinus tachycardia with nonspecific T wave abnormality in lateral lead with septal infarct age
indeterminate. Started on IV heparin and NTG drip. ProBNP 10,600. She received IV Lasix [address] of chest was negative for PE. There were bilateral groundglass opacities consistent for multifocal pneumonia as well as prominent mediastinal and
bilateral hilar lymph nodes. She was given dose of IV steroids and placed on Rocephin and azithromycin.
Progress Note - Manager Domestic
Subjective
Date of Service: November 17, 2023
Patient reports no change in symptoms following cath and PCI, no better, no worse
Objective
Labs:
11/17/23 03:34
11/17/23 03:34
Labs
Hgb 11.2 g/dL (12.0-16.0) L 11/17/23 03:34
Hct 32.5 % (37.0-47.0) L 11/17/23 03:34
Plt Count 358 10^3/uL (130-400) 11/17/23 03:34
PT 17.3 Sec (11.4-14.6) H 11/15/23 04:55
INR 1.43 11/15/23 04:55
APTT Cancelled 11/16/23 12:00
Sodium 139 mmol/L (135-145) 11/17/23 03:34
Potassium 3.8 mmol/L (3.5-5.1) 11/17/23 03:34
BUN 24 mg/dl (7-17) H 11/17/23 03:34
Creatinine 0.7 mg/dL (0.6-1.0) 11/17/23 03:34
Glucose 158 mg/dl (70-99) H 11/17/23 03:34
Troponins
11/14/23 11/14/23 11/15/23
14:02 20:20 04:55
Troponin I 2.410 H* 1.810 H* 0.952 H*
Vital Signs and I&O:
Vital Signs
Temp Pulse Resp BP Pulse Ox
98.8 F 62 20 150/87 96
11/17/23 07:07 11/17/23 06:00 11/17/23 07:07 11/17/23 03:18 11/17/23 07:07
Vital Signs
Temp Pulse Resp BP Pulse Ox
98.8 F 62 20 150/87 96
11/17/23 07:07 11/17/23 06:00 11/17/23 07:07 11/17/23 03:18 11/17/23 07:07
Intake & Output
11/15/23 11/16/23 11/17/2311/17/24
06:59 06:59 06:59 06:59
Intake Total 250 / 250 250 / 250 580 / 580
Output Total 1575 / 1575 850 / 850
Balance -1325 / -1325 -600 / -600 580 / 580
Physical Exam
Physical Exam
GEN: AAOx3
HEENT: mmm
LUNGS: No audible wheeze
CV: SR on tele
ABD: ND
EXT: Trace edema B/L
NEURO: Gross non-focal
SKIN: No rash
[2023-11-17] MEDS: SPIRIVA RESPIMAT 2.5 MCG INH (08:20)
[2023-11-17] MEDS: SYMBICORT 160/4.5 MCG INHALER INH (08:20)
--- NOTE | 2023-11-17 08:52 | W.CARD.POSTP ---
Post PCI Follow Up
Procedure
Procedure/Date: 11/16/23 Successful PCI of IFR positive 60-70% mid LAD stenosis with one 3.5 x 12 mm Medtronic [place] frontier drug-eluting stent.
Subjective: no cp, sob
Site
Site: Radial: Right
Tele / EKG
SR with PAC's
Labs
11/17/23 03:34
11/17/23 03:34
PT 17.3 Sec (11.4-14.6) H 11/15/23 04:55
INR 1.43 11/15/23 04:55
APTT Cancelled 11/16/23 12:00
Magnesium 1.8 mg/dl (1.6-2.3) 11/15/23 04:55
Triglycerides 77 mg/dl (10-149) 11/15/23 04:55
LDL Cholesterol, Calc 63 mg/dl 11/15/23 04:55
VLDL Cholesterol, Calc 15 mg/dl (0-30) 11/15/23 04:55
HDL Cholesterol 43 mg/dl 11/15/23 04:55
Free T4 1.40 ng/dl (0.78-2.19) 11/15/23 04:55
11/14/23
14:02
Gkb-[id number]-[id number] Pept [id number]
DAPT Medication
DAPT Medication: Aspirin 81mg daily and Tricagrelor 90 mg BID
Case Management checking rueda: Yes ($47/mo after deductible, ok with cost)
Plan
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
Cardiac rehab c/s
--- NOTE | 2023-11-17 08:58 | W.PN.PUL.V3 ---
Today's Communication / Plan
-
Prednisone with slow taper
MRCP
Dual antiplatelet therapy after stent
Wean oxygen
Finite course of antibiotics
Assessment
-
78-year-old female with a history of COPD, 15-bchy-rmoy smoking history quit 10 years ago, hypertension, hyperlipidemia, reflux who presents with progressive shortness of breath diagnosed with multifocal pneumonia and NSTEMI-pulmonary consulted for
pneumonia/COPD 11/15/2023
Community-acquired pneumonia
COPD with mild acute exacerbation
NSTEMI with elevated troponin-troponin peak 2.4
Cardiac catheterization 11/16/2023 with LAD stent
Elevated left ventricular end-diastolic pressure
Hypokalemia
Leukocytosis-WBC 15.2
Mild normocytic anemia-hemoglobin 10.4
Hyperglycemia-blood sugar 199
Conditions present prior to admission:
COPD.
Former prnaze-56-10-pack-year quit 10 years ago.
Pulmonary nodule
'Tracheal webbing and serial CT chest'-bronchoscopy July 2022 unrevealing, significant secretions,
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
Hypertension.
Hyperlipidemia.
GERD.
Depression.
Fibromyalgia.
Chronic back pain/spinal stenosis.
Peripheral neuropathy.
Diverticulosis.
Thyroid nodule.
Hysterectomy. Right hip replacement. Carpal tunnel. Rotator cuff.
Plan
Decompensation likely due to pneumonia, NSTEMI and COPD exacerbation-significant prolonged expiratory time end expiratory wheezes/rhonchi
Supplemental oxygen-attempt to wean
Assess discharge supplemental oxygen needs at the time of discharge
Nebulizers
Symbicort and Spiriva continue
Aspiration precautions
Mucolytics
Mucus clearing devices if needed
Decadron-changed to prednisone with slow taper
Cultures reviewed
RSV culture negative
Legionella canceled
Streptococcal pneumonia antigen negative
Influenza negative
C. difficile negative
Sputum culture-unable to produce sputum
Empiric antibiotics-Rocephin and Doxycycline-finite course
Monitor leukocytosis
Cardiology evaluation-correspondence reviewed
Trend troponin
Heparin drip
Nitroglycerin as needed
Gentle diuresis
Monitor renal function, electrolytes, intake/output, lower extremity edema and weight
Replace electrolytes as needed
Echocardiogram 11/15/2023--EF 40-45%, distal septal hypokinesis, note EF reduced from baseline
Cardiac catheterization 11/16/2023-status post drug-eluting stent mid LAD stenosis and noted elevated left ventricular end-diastolic pressure of 20
Dual antiplatelet therapy
Chronic elevation of alkaline phosphatase and transaminitis
Chronic common bile duct dilation-ultrasound shows dilation similar to 2020
MRCP 11/17/2023 pending
Monitor blood sugar
Insulin supplementation as needed-especially as steroids initiated
DVT prophylaxis-on heparin
GI prophylaxis-on PPI
Nutrition
Early mobilization
Reviewed with nursing
Originally seen by Dr. Russell in 2017 but recently followed by Amy Rodriguez and Dr. Boykin on 08/18/2023--has appointment 12/22/2023 at 11:[address] Boykin
May 2024 low-dose lung cancer screening CT chest has also been recommended and prescription has been provided
Diagnostic data:
Chest x-ray 11/14/2023-COPD changes, 2.3 cm soft tissue nodule projecting lower right lung
CT fitmn-epj-rzly 01/10/18: Tiny 2 mm nodule anterior right upper lobe which is unchanged, no other pulmonary nodules, no adenopathy or acute process. Study compared to March 15, 2016 and September 22- Bronchoscopy- No abnormal finding
within the lower neck. Significant amount of soomewhat tenacious bronchial secretions at the tracheal and bilateral airways. Secretions white to yellow in color. No endobronchial abnormalities and trachea or bilateral airways. Respiratory culture
with usual respiratory jaz. AFB smear culture negative. Fungus mold identified as Trametes Hirsuta/Trametes versicolor. Basidiomyceteous moulds are enviromental molds.5/
CT chest-10/2022- CT Chest- trivial well-being and nodularity grossly unchanged compared to prior CT. Multi thyroid nodules. Changes of mild central lobar emphysema. Mild coronary artery calcification. Trachea nodules measuring up to 6 mm in
diameter. Additional endobronchial nodule seen wiithin the right main stem bronchus. Measuring [address] [id number]- Endobronchial nodule seen ~8 by 3 mm. Associated with thin web which extends between left main stem bronchus and midportion of trachea. No significant narrowing of trachea. Tiny RUL nodule ~2mm which is unchanged.video swallow-
06/11/2023- VSE- transient penetration with thin liquid barium by spoon. Inconsistent transient penetration with no aspiration with thin liquid barium by cough. Otherwise no evidence for aspiration.
CT chest- 05/28/2023- CT Chest- Mild subpleural consolidation/groundglass densities and small tree and bud nodules in the dependent bilateral lower lobes, new from prior. No pleural effusion. No adenopathy. Mild tracheal webbing and nodularity,
slightly change in orientation compared to prior suggesting inspissated secretions.
CT chest 11/14/2023-no evidence for PE, bilateral tree-in-bud opacifications consistent with multifocal pneumonia, prominent mediastinal and bilateral hilar lymph nodes likely reactive
Echocardiogram- 07/2022- ECHO- essentially normal. No valvular disease. EF 55-60%
[id number]-FVC 2.58, 83 Fev1 1.59, 68 11 BD response ratio 62 TLC 92 DLCO [id number]- PFT- FVC 2.58,82 Fev1 1.61,68 8BD response rati0 65 TLC 86 DLCO 81PFT:02/14/2019 FVC: 2.47 L / 78 %; FEV1: 1.60 L / 67 % ; Ratio: 65 %; BD response: NoTLC:
4.77 L/89% DLCO: 78%
PFT 08/18/23-FEV1 1.35-64%, FVC 2.3-81%, temperature percent BD response, TLC 116%, RV 65%, DLCO 62%, DLCO/VA 78%.� Moderate obstruction, significant BD response, moderate to severe hyperinflation and moderate reduction in diffusing capacity.
Subjective Data
-
Date of Service:
Date of Service: November 17, 2023
Chief Complaint: Pulmonary Follow Up and Dyspnea Follow Up
Subjective:
Feels better, no complaints of worsening shortness of breath, has mild dyspnea on exertion, no chest pain, chest tightness, productive cough, wheezing improved, no abdominal pain
Review of Systems
General: Other (Per HPI)
Objective Data
Data Reviewed
Vital Signs / I&O:
Vital Signs
Temp Pulse Resp BP Pulse Ox
98.8 F 65 20 138/71 96
11/17/23 07:07 11/17/23 08:00 11/17/23 07:07 11/17/23 07:10 11/17/23 07:10
Intake and Output
11/16/23 11/17/23 11/18/23
06:59 06:59 06:59
Intake Total 250 / 250 580 / 580
Output Total 850 / 850
Balance -600 / -600 580 / 580
SaO2: 96
Nasal Cannula flow liters per minute: 3
Physical Exam
General: Respiratory Distress (n) and Comfortable
HEENT: Normocephalic, Anicteric and Moist Mucous Membranes
Cardiovascular: Regular Rhythm
Respiratory: Wheeze (Expiratory), Crackles (Rare basilar), Rhonchi (Expiratory), Non-Labored Respirations, Accessory Resp Muscle Use (n) and Stridor (n)
GI: Soft, Non Distended and Non Tender
Neurology: Awake, Alert and No Motor Deficits
Skin: Warm, Good Color, Cyanosis (n), Jaundice (n) and Rash (n)
Labs/Micro/Reports
Lab Data
11/17/23 03:34
11/17/23 03:34
Laboratory Results
11/16/23
12:00
APTT Cancelled
Microbiology
11/14/23 17:23 Blood/Venous Blood Culture - Preliminary
No Growth in 48 hours- Final report to follow
11/15/23 19:17 Feces/Stool C. difficile GDH Antigen & Toxins - Final
Negative for toxigenic C.difficile
11/15/23 09:38 Urine Streptococcus pneumoniae Antigen (M - Final
Negative for Streptococcus pneumoniae antigen.
A negative result does not exclude infection with
Streptococcus pneumoniae. Clinical correlation is
recommended.
11/15/23 10:43 Nasal Swab Respiratory Syncytial Virus Culture - Final
Negative for Respiratory Syncytial Virus.
A false negative result may be obtained with a specimen
collected early in the acute phase. If symptoms persist, a
new specimen should be tested.
11/15/23 09:38 Nasal Swab Influenza Types A & B ([facility]WIN) - Final
Negative for Influenza A & B, NAAT
Negative results must be combined with clinical observations
and patient history.
Nucleic Acid Amplification test (NAAT)performed on the
[employer] platform.
11/15/23 00:06 Urine Legionella Urinary Antigen - Final
Negative for Legionella pneumophila Serogroup 1 antigen.
A negative result does not rule out the possiblity of
Legionella infection due to other serogroups or species of
Legionella. Clinical correlation is recommended.
[2023-11-17] MEDS: LASIX 40 MG IV (09:44)
[2023-11-17] MEDS: VIBRAMYCIN 260 MG IV ×2 (09:45→22:14)
--- NOTE | 2023-11-17 10:16 | W.PN.UPDATE ---
Addendum entered and electronically signed by Maurilio Reyes MD 11/17/23 12:31:
As per cardiology - cont inpatient monitoring
Original Note:
Update Note
Progress Note Update
MRCP showed side branch intraductal papillary mucinous neoplasms - will give outpatient GI referral for possible EUS vs watchful waiting
[2023-11-17] MEDS: BRILINTA 90 MG PO ×2 (10:54→20:12)
[2023-11-17] MEDS: NORVASC 2.5 MG PO (10:54)
[2023-11-17] MEDS: PROTONIX 40 MG PO (10:54)
[2023-11-17] MEDS: LOW STRENGTH ASPIRIN 81 MG PO (10:54)
[2023-11-17] MEDS: ZOLOFT 150 MG PO (10:55)
[2023-11-17] MEDS: VISBIOME 2 CAP PO (10:55)
[2023-11-17] MEDS: DELTASONE 40 MG PO (11:18)
--- NOTE | 2023-11-17 11:31 | CM ---
Chart reviewed. Patient is independent of ADLS, lives with her , 1 STH, 2 [facility], 0 DME. Plan is for the patient to return home. CM to follow
[2023-11-17] MEDS: ROCEPHIN 1000 MG IV (12:04)
[2023-11-17] MEDS: STERILE WATER FOR INJECTION 10 ML IV (12:04)
[2023-11-17] MEDS: JARDIANCE 10 MG PO (13:03)
--- NOTE | 2023-11-17 13:14 | CM ---
Pricing on Jardiance through patient's PP is $47 a month. Patient is agreeable to the cost. I placed a free 30 day coupon in the patient's red discharge folder.
[2023-11-17] MEDS: TOPROL XL 12.5 MG PO (16:19)
[2023-11-17] MEDS: LIPITOR 40 MG PO (17:51)
[2023-11-17] MEDS: SYMBICORT 160/4.5 MCG INHALER 2 PUFF INH (19:51)
--- NOTE | 2023-11-17 20:52 | PTCARENOTE ---
Received pt at handoff. AOX3 and pleasant. Tele- SR. Assessment completed as documented. Pt ambulatory around room w/ steady gait. No c/o pain/discomfort. POC reviewed w/ pt. Verbalizes understanding. Currently in bed; call frederick w/in reach.
[2023-11-17] MEDS: COZAAR 100 MG PO (22:14)
[2023-11-17] MEDS: MELATONIN 12 MG PO (22:14)
[2023-11-18 01:59] VITALS: BP 148/80
[2023-11-18 02:01] VITALS: BMI 28.0
[2023-11-18 03:51] LABS: ALT (SGPT) 54 U/L (0-35); AST (SGOT) 36 U/L (14-36); Albumin 3.6 g/dl (3.5-5.0); Alkaline Phosphatase 148 U/L (38-126); Blood Urea Nitrogen 27 mg/dl (7-17); Calcium 9.7 mg/dl (8.4-10.2); Carbon Dioxide 27 mmol/L (22-30); Chloride 103 mmol/L (98-107); Estimated Creatinine Clearance 60 ml/min; Glucose 130 mg/dl (70-99); Potassium 3.5 mmol/L (3.5-5.1); Sodium 138 mmol/L (135-145); Total Bilirubin 0.3 mg/dl (0.2-1.3); Total Protein 6.4 g/dl (6.3-8.2); eGFR > 60.00
[2023-11-18 07:23] VITALS: BP 135/77
[2023-11-18] MEDS: ROXICODONE 10 MG PO (07:40)
[2023-11-18] MEDS: SYMBICORT 160/4.5 MCG INHALER 2 PUFF INH (07:43)
[2023-11-18] MEDS: SPIRIVA RESPIMAT 2.5 MCG 2 PUFF INH (07:43)
[2023-11-18] MEDS: BRILINTA 90 MG PO (08:24)
[2023-11-18] MEDS: LASIX 40 MG PO (08:24)
[2023-11-18] MEDS: LOW STRENGTH ASPIRIN 81 MG PO (08:25)
[2023-11-18] MEDS: TOPROL XL 12.5 MG PO (08:25)
[2023-11-18] MEDS: JARDIANCE 10 MG PO (08:25)
[2023-11-18] MEDS: DELTASONE 40 MG PO (08:25)
[2023-11-18] MEDS: VISBIOME 2 CAP PO (08:25)
[2023-11-18] MEDS: PROTONIX 40 MG PO (08:25)
[2023-11-18] MEDS: ZOLOFT 150 MG PO (08:26)
[2023-11-18] MEDS: VIBRAMYCIN 260 MG IV (09:04)
--- NOTE | 2023-11-18 09:22 | W.PN.HOSP.TC ---
Today's Communication/Plan
-
pending further mgmt by cardio vs d/c
Assessment / Plan
Assessment / Plan
78yo F with insomnia, anxiety, HTN, COPD, HLD came with c/o 1 week of persistent worsening chest tightness, found elevated troponin and bilateral pneumonia. Cath done on 11/16/23 s/p PCI in LAD. Mild COPD exacerbation with hypoxia improved witgh
steroids taper. LFT elevation with mild CBD dilation found so MRCP was done and found small cystic lesions, possible IPMN, patient will be followed with GI as outpatient for the further mgmt of these. Recommended to have TSH and FT4 repeated in 2-3
weeks upon d/c with PCP.
A/P:
#Multifocal CAP with unspecified organism
Rocephin/Doxy (switched from Azithromycin to avoid QTc prolongation)
COVID-19 neg, check RSV and influenza
Check Legionella and S.pneumo urinary Ag
Sputum Cx if possible
Procalcitonin
#Elevated troponin, concern for NSTEMI
Heparin stopped after cardiac cath
DAPT (Brilinta)
Serial troponin and EKG
Statin
Telemetry
Cardio consult
LDL WNL
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
7mm each
GI as outpatient - for EUS vs monitoring with imaging, referral to be provided. Daughter and patient aware of the findings, GI also recommended outpatient eval
#Subclinical hyperthyroidism
FT4 wnl
repeat thyroid studies in 2-3 weeks upon d/c
#Acute hypoxic insufficiency 2/2 mild CHF (unspecified) exacerbation
Echo: there is anterior, anteroseptal, and possible
distal septal hypokinesis. Ejection fraction is decreased from 55-60% to 40-
45%.
telemetry, Lasix, follow daily weights and electrolytes
wean off O2
#COPD, with mild exacerbation
#RUL lung nodule
#Emphysema
COPnt bronchodilators
Steroids taper
Size of the nodule does not corresponds to previously seen 2mm lesion - Pulm consult - has appt with pulm on 12/22/23
#PreDM
advise low carb diet
#Hypokalemia
replete and follow potassium
#Anxiety D/o
#Essential HTN
#HLd
cont home meds
#Chronic elevation of alk.phos
#Transaminitis
#Chronic CBD dilation
US showed dilation of CBD similar to the one in 2020
MRCP
#s/p cholecystectomy
#Mild anemia
#Thyroid nodules
at least since 2018
no RUQ pain, suspect bone origin
Recommend outpatient f/u with PCP
DVT ppx on hep
Full code
I have spent at least 58min reviewing chart, test results, communication with consultants and direct patient care
Anticipated Discharge: Today
Subjective/Interval History
-
Date of Service: November 18, 2023
Objective Data
-
Labs:
Laboratory Results
11/18/23
02:10
Sodium 138
Potassium 3.5
Chloride 103
Carbon Dioxide 27
BUN 27 H
Creatinine 0.8
Glucose 130 H
Calcium 9.7
Total Bilirubin 0.3
AST 36
ALT 54 H
Alkaline Phosphatase 148 H
Vital Signs:
Vital Signs
Temp Pulse Resp BP Pulse Ox
97.4 F 73 16 135/77 95
11/18/23 07:24 11/18/23 08:25 11/18/23 07:47 11/18/23 08:25 11/18/23 07:47
I&O
11/17/23 11/18/23 11/19/23
06:59 06:59 06:59
Intake Total 580 / 580 940 / 940
Output Total 900 / 900
Balance 580 / 580 40 / 40
Review of Systems
-
History Source: Patient
All other systems: Reviewed and negative
Physical Exam
-
General: Well Developed
HEENT: Normocephalic
Cardiac: Regular Rhythm
GI: Soft, Nontender and Nondistended
Genito-urinary: No Costovertebral Tender
Musculoskeletal: No Clubbing, No Cyanosis and No Edema
Neuro: Awake, Alert, Oriented and AO x 3
Psych: Calm
--- NOTE | 2023-11-18 10:10 | W.PN.PUL.V3 ---
Today's Communication / Plan
-
Diuresis as tolerated
Prednisone taper
Assess discharge supplemental oxygen needs
Outpatient pulmonary follow-up
Assessment
-
78-year-old female with a history of COPD, [id number] smoking history quit 10 years ago, hypertension, hyperlipidemia, reflux who presents with progressive shortness of breath diagnosed with multifocal pneumonia and NSTEMI-pulmonary consulted for
pneumonia/COPD 11/15/2023
Community-acquired pneumonia
COPD with mild acute exacerbation
NSTEMI with elevated troponin-troponin peak 2.4
Cardiac catheterization 11/16/2023 with LAD stent
Elevated left ventricular end-diastolic pressure
Hypokalemia
Leukocytosis-WBC 15.2
Mild normocytic anemia-hemoglobin 10.4
Hyperglycemia-blood sugar 199
Conditions present prior to admission:
COPD.
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
Pulmonary nodule
'Tracheal webbing and serial CT chest'-bronchoscopy July 2022 unrevealing, significant secretions,
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
Hypertension.
Hyperlipidemia.
GERD.
Depression.
Fibromyalgia.
Chronic back pain/spinal stenosis.
Peripheral neuropathy.
Diverticulosis.
Thyroid nodule.
Hysterectomy. Right hip replacement. Carpal tunnel. Rotator cuff.
Plan
Decompensation likely due to pneumonia, NSTEMI and COPD exacerbation-significant prolonged expiratory time end expiratory wheezes/rhonchi
Supplemental oxygen-attempt to wean
Assess discharge supplemental oxygen needs at the time of discharge
Nebulizers
Symbicort and Spiriva continue
Aspiration precautions
Mucolytics
Mucus clearing devices if needed
Prednisone-further decrease to 30 mg with fairly rapid taper-wheezing improved with diuresis and suspect 'cardiac component'
Cultures reviewed
RSV culture negative
Legionella canceled
Streptococcal pneumonia antigen negative
Influenza negative
C. difficile negative
Sputum culture-unable to produce sputum
Empiric antibiotics-Rocephin and Doxycycline-finite course
Monitor leukocytosis
Cardiology evaluation-correspondence reviewed
Trend troponin
Heparin drip
Nitroglycerin as needed
Gentle diuresis
Monitor renal function, electrolytes, intake/output, lower extremity edema and weight
Replace electrolytes as needed
Echocardiogram 11/15/2023--EF 40-45%, distal septal hypokinesis, note EF reduced from baseline
Cardiac catheterization 11/16/2023-status post drug-eluting stent mid LAD stenosis and noted elevated left ventricular end-diastolic pressure of 20
Dual antiplatelet therapy
Chronic elevation of alkaline phosphatase and transaminitis
Chronic common bile duct dilation-ultrasound shows dilation similar to 2020
MRCP 11/17/2023 pending
Monitor blood sugar
Insulin supplementation as needed-especially as steroids initiated
DVT prophylaxis-on heparin
GI prophylaxis-on PPI
Nutrition
Early mobilization
Reviewed with nursing
Originally seen by Dr. Russell in 2017 but recently followed by Amy Rodriguez and Dr. Boykin on 08/18/2023--has appointment 12/22/2023 at 11:[address] Boykin
May 2024 low-dose lung cancer screening CT chest has also been recommended and prescription has been provided
Diagnostic data:
Chest x-ray 11/14/2023-COPD changes, 2.3 cm soft tissue nodule projecting lower right lung
CT [id number]-[id number] 01/10/18: Tiny 2 mm nodule anterior right upper lobe which is unchanged, no other pulmonary nodules, no adenopathy or acute process. Study compared to March 15, 2016 and September 22- Bronchoscopy- No abnormal finding
within the lower neck. Significant amount of soomewhat tenacious bronchial secretions at the tracheal and bilateral airways. Secretions white to yellow in color. No endobronchial abnormalities and trachea or bilateral airways. Respiratory culture
with usual respiratory jaz. AFB smear culture negative. Fungus mold identified as Trametes Hirsuta/Trametes versicolor. Basidiomyceteous moulds are enviromental molds.5/
CT chest-10/2022- CT Chest- trivial well-being and nodularity grossly unchanged compared to prior CT. Multi thyroid nodules. Changes of mild central lobar emphysema. Mild coronary artery calcification. Trachea nodules measuring up to 6 mm in
diameter. Additional endobronchial nodule seen wiithin the right main stem bronchus. Measuring [address] [id number]- Endobronchial nodule seen ~8 by 3 mm. Associated with thin web which extends between left main stem bronchus and midportion of trachea. No significant narrowing of trachea. Tiny RUL nodule ~2mm which is unchanged.video swallow-
06/11/2023- VSE- transient penetration with thin liquid barium by spoon. Inconsistent transient penetration with no aspiration with thin liquid barium by cough. Otherwise no evidence for aspiration.
CT chest- 05/28/2023- CT Chest- Mild subpleural consolidation/groundglass densities and small tree and bud nodules in the dependent bilateral lower lobes, new from prior. No pleural effusion. No adenopathy. Mild tracheal webbing and nodularity,
slightly change in orientation compared to prior suggesting inspissated secretions.
CT chest 11/14/2023-no evidence for PE, bilateral tree-in-bud opacifications consistent with multifocal pneumonia, prominent mediastinal and bilateral hilar lymph nodes likely reactive
Echocardiogram- 07/2022- ECHO- essentially normal. No valvular disease. EF 55-60%
[id number]-45-602-03-2021-FVC 2.58, 83 Fev1 1.59, 68 11 BD response ratio 62 TLC 92 DLCO [id number]- PFT- FVC 2.58,82 Fev1 1.61,68 8BD response rati0 65 TLC 86 DLCO 81PFT:02/14/2019 FVC: 2.47 L / 78 %; FEV1: 1.60 L / 67 % ; Ratio: 65 %; BD response: NoTLC:
4.77 L/89% DLCO: 78%
PFT 08/18/23-FEV1 1.35-64%, FVC 2.3-81%, temperature percent BD response, TLC 116%, RV 65%, DLCO 62%, DLCO/VA 78%.� Moderate obstruction, significant BD response, moderate to severe hyperinflation and moderate reduction in diffusing capacity.
Subjective Data
-
Date of Service:
Date of Service: November 18, 2023
Chief Complaint: Pulmonary Follow Up and Dyspnea Follow Up
Subjective:
Feels better, out of bed, no complaints of shortness of breath, less wheezing, no productive cough, chest pain, pleurisy, abdominal pain or increased lower extremity swelling
Review of Systems
General: Other (Per HPI)
Objective Data
Data Reviewed
Vital Signs / I&O:
Vital Signs
Temp Pulse Resp BP Pulse Ox
97.4 F 73 16 135/77 95
11/18/23 07:24 11/18/23 08:25 11/18/23 07:47 11/18/23 08:25 11/18/23 07:47
Intake and Output
11/17/23 11/18/23 11/19/23
06:59 06:59 06:59
Intake Total 580 / 580 940 / 940
Output Total 900 / 900
Balance 580 / 580 40 / 40
SaO2: 95
Nasal Cannula flow liters per minute: 3
Physical Exam
General: Respiratory Distress (n) and Comfortable
HEENT: Normocephalic, Anicteric and Moist Mucous Membranes
Cardiovascular: Regular Rhythm
Respiratory: Wheeze (Expiratory), Crackles (Rare basilar), Rhonchi (Expiratory), Non-Labored Respirations, Accessory Resp Muscle Use (n) and Stridor (n)
GI: Soft, Non Distended and Non Tender
Neurology: Awake, Alert and No Motor Deficits
Skin: Warm, Good Color, Cyanosis (n), Jaundice (n) and Rash (n)
Labs/Micro/Reports
Lab Data
11/17/23 03:34
11/18/23 02:10
Microbiology
11/14/23 17:23 Blood/Venous Blood Culture - Preliminary
No Growth in 72 hours- Final report to follow
11/17/23 10:30 Feces/Stool - Final
Negative for Norovirus GI and GII.
11/15/23 19:17 Feces/Stool C. difficile GDH Antigen & Toxins - Final
Negative for toxigenic C.difficile
11/15/23 09:38 Urine Streptococcus pneumoniae Antigen (M - Final
Negative for Streptococcus pneumoniae antigen.
A negative result does not exclude infection with
Streptococcus pneumoniae. Clinical correlation is
recommended.
11/15/23 10:43 Nasal Swab Respiratory Syncytial Virus Culture - Final
Negative for Respiratory Syncytial Virus.
A false negative result may be obtained with a specimen
collected early in the acute phase. If symptoms persist, a
new specimen should be tested.
11/15/23 09:38 Nasal Swab Influenza Types A & B ([facility]WIN) - Final
Negative for Influenza A & B, NAAT
Negative results must be combined with clinical observations
and patient history.
Nucleic Acid Amplification test (NAAT)performed on the
[employer] platform.
11/15/23 00:06 Urine Legionella Urinary Antigen - Final
Negative for Legionella pneumophila Serogroup 1 antigen.
A negative result does not rule out the possiblity of
Legionella infection due to other serogroups or species of
Legionella. Clinical correlation is recommended.
--- NOTE | 2023-11-18 10:37 | W.PN.CARDCBS ---
Addendum entered and electronically signed by Ольга Deluna DO 11/18/23 16:04:
I saw and examined the patient.
The Utility Systems Repairer Operator's note was reviewed and I agree with the note.
Comment: Seen and examined at bedside. No complaints of chest pain or shortness of breath.
General: No acute distress, AAOX3
Neck: Negative JVD
Heart: Regular, positive S1/S2, no murmur
Lungs: CTA b/l, negative wheezes/rales/rhonchi
Abd: Positive BS, NT/ND, neg rebound/rigidity/guarding
Ext: No edema. Right radial site intact.
Neuro: nonfocal
Plan:
Presented with worsening shortness of breath and chest tightness with non-STEMI, peak troponin 2.41
-patient had cath 11/16/23 with 3.5 mm Nelson DEWAYNE to iFR positive mid LAD lesion.
-Continue 1 year of dual antiplatelet therapy. New to Brilinta and appreciate help of CM on checking cost, patient is agreeable to $47/month.
-EF newly reduced at 40-45% this admission. Outpatient dose of losartan 100 mg HS has been continued.
-Patient tolerated addition of Toprol XL 12.5 mg daily on 11/17/23 without wheeze, will continue as an outpatient.
-New to Jardiance 10 mg daily.
-Weight is unchanged despite Lasix 40 mg IV daily since admission. LVEDP 20 by cath 11/16/23. Patient was not taking a diuretic prior to admission, but should go home on Lasix 40 mg PO daily.
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 Patient is aware of this finding and need for follow-up
-Recommend outpatient cardiac rehab
-Cardiology f/u arranged.
-From a cardiovascular standpoint can be discharged home with outpatient follow-up
Original Note:
Today's Communication / Plan
-
D/C to home with cardiology follow up arranged
Impression / Plan
-
PCP: Linette Hernandez
Sales Effectiveness Manager: Evaluated by Dr. Urban 2015, no bronze chaser since
Impression:
Presented 11/14/2023 with progressively worsening chest tightness, shortness of breath, cough, orthopnea, PND
Acute hypoxic respiratory insufficiency
COPD exacerbation
Bilateral pneumonia
Acute HFrEF
Abnormal troponin, peaked 2.41
NSTEMI, suspect late presentation
CAD s/p 3.5 mm Nelson DEWAYNE to iFR positive mid LAD lesion 11/16/23
ICM EF 40-45% by echo 11/15/23
Hypertension
Hyperlipidemia
COPD
GERD
Depression
Fibromyalgia
Spinal stenosis
Peripheral neuropathy
Diverticulitis
Thyroid nodule
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
Lexiscan nuclear stress test 04/13/2016: Small fixed defect in inferior segment consistent with infarction versus soft tissue attenuation/diaphragmatic attenuation, EF 54%
Echo 08/18/2022: EF 55 to 60% with no significant valvular disease
Echo 11/15/2023: EF 40 to 45% with anteroseptal and anterior hypokinesis. Possible distal septal hypokinesis. Mild concentric LVH. Mild MR, mild TR with PAP 29 mmHg
Plan:
-Peak Troponin 2.41 on admission and trending down thereafter. patient had cath 11/16/23 with 3.5 mm Dighton DEWAYNE to iFR positive mid LAD lesion. New to Brilinta and appreciate help of CM on checking cost, patient is agreeable to $47/month.
-EF newly reduced at 40-45% this admission. Outpatient dose of losartan 100 mg HS has been continued.
-Patient tolerated addition of Toprol XL 12.5 mg daily on 11/17/23 without wheeze, will continue as an outpatient.
-New to Jardiance 10 mg daily.
-Weight is unchanged despite Lasix 40 mg IV daily since admission. LVEDP 20 by cath 11/16/23. Patient was not taking a diuretic prior to admission, but should go home on Lasix 40 mg PO daily.
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
-Cardiology f/u arranged.
HPI 11/15/2023: Patient is a 78-year-old female with past medical history significant for COPD, hypertension, hyperlipidemia, GERD who presents to emergency department with chest heaviness associated with shortness of breath. Patient reports
intermittent exertional chest discomfort like a band around her chest for several months and dyspnea on exertion. Over the last week she noted worsening cough associated with shortness of breath and chest pressure/heaviness with minimal activity.
Wednesday [place] was at the beach and was unable to walk several steps before having symptoms symptoms continued at rest. She continued to have chest heaviness, cough, shortness of breath, orthopnea and PND throughout the weekend prompting her to come to
the emergency department last evening 11/14/2023. On presentation to emergency department noted to have elevated troponin at 2.41. EKG showed sinus tachycardia with nonspecific T wave abnormality in lateral lead with septal infarct age
indeterminate. Started on IV heparin and NTG drip. ProBNP 10,600. She received IV Lasix [address] of chest was negative for PE. There were bilateral groundglass opacities consistent for multifocal pneumonia as well as prominent mediastinal and
bilateral hilar lymph nodes. She was given dose of IV steroids and placed on Rocephin and azithromycin.
Progress Note - Sales Effectiveness Manager
Subjective
Date of Service: November 18, 2023
She feels well and wants to go home
Objective
Labs:
11/17/23 03:34
11/18/23 02:10
Labs
Hgb 11.2 g/dL (12.0-16.0) L 11/17/23 03:34
Hct 32.5 % (37.0-47.0) L 11/17/23 03:34
Plt Count 358 10^3/uL (130-400) 11/17/23 03:34
PT 17.3 Sec (11.4-14.6) H 11/15/23 04:55
INR 1.43 11/15/23 04:55
APTT Cancelled 11/16/23 12:00
Sodium 138 mmol/L (135-145) 11/18/23 02:10
Potassium 3.5 mmol/L (3.5-5.1) 11/18/23 02:10
BUN 27 mg/dl (7-17) H 11/18/23 02:10
Creatinine 0.8 mg/dL (0.6-1.0) 11/18/23 02:10
Glucose 130 mg/dl (70-99) H 11/18/23 02:10
Vital Signs and I&O:
Vital Signs
Temp Pulse Resp BP Pulse Ox
97.4 F 73 16 135/77 95
11/18/23 07:24 11/18/23 08:25 11/18/23 07:47 11/18/23 08:25 11/18/23 10:10
Vital Signs
Temp Pulse Resp BP Pulse Ox
97.4 F 73 16 135/77 95
11/18/23 07:24 11/18/23 08:25 11/18/23 07:47 11/18/23 08:25 11/18/23 10:10
Intake & Output
11/16/23 11/17/23 11/18/23 11/19/23
06:59 06:59 06:59 06:59
Intake Total 250 / 250 580 / 580 940 / 940
Output Total 850 / 850 900 / 900
Balance -600 / -600 580 / 580 40 / 40
Physical Exam
Physical Exam
GEN: AAOx3
HEENT: mmm
LUNGS: No audible wheeze
CV: SR on tele
ABD: ND
EXT: Trace edema B/L
NEURO: Gross non-focal
SKIN: No rash
[2023-11-18 11:00] VITALS: BP 124/61
--- NOTE | 2023-11-18 11:21 | W.DCSUMMARY ---
Discharge Summary
Discharge Data
Date of Admission: 11/14/23
Date of Discharge: 11/18/23
-
Pending Results: No
Hospital Course
78yo F with insomnia, anxiety, HTN, COPD, HLD came with c/o 1 week of persistent worsening chest tightness, found elevated troponin and bilateral pneumonia. Cath done on 11/16/23 s/p PCI in LAD. Mild COPD exacerbation with hypoxia improved witgh
steroids taper. LFT elevation with mild CBD dilation found so MRCP was done and found small cystic lesions, possible IPMN, patient will be followed with GI as outpatient for the further mgmt of these. Recommended to have TSH and FT4 repeated in 2-3
weeks upon d/c with PCP.
Provided tapering prednisone, Abx and referrals to GI, cardio and pulm upon d/c
Medically stable for d/c
I have spent at least 37min preparing d/c
A/P:
#Multifocal CAP with unspecified organism
#Elevated troponin, concern for NSTEMI
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
#Subclinical hyperthyroidism
#Acute hypoxic insufficiency 2/2 mild HFmrEF exacerbation
#COPD, with mild exacerbation
#RUL lung nodule
#Emphysema
#PreDM
#Hypokalemia
#Anxiety D/o
#Essential HTN
#HLd
#Chronic elevation of alk.phos
#Transaminitis
#Chronic CBD dilation
#s/p cholecystectomy
#Mild anemia
#Thyroid nodules
Discharge Plan
-
Patient Disposition: Home (Routine Discharge)
Discharge Diagnosis/Procedures: Angioplasty and stent to Left Anterior Descending artery
Condition: Good
Diet: Low Cholesterol
Activity: As tolerated
Driving Restrictions: No driving for 24 hours
Bathing Restrictions: None
Other Services: Cardiac Rehab
Stand Alone Forms: DC Instructions- Cath/EP Lab
Referrals:
[facility] [Outside] - 12/02/23 10:30 am
(Cardiac Rehab Orientation and First Exercise appointment is on November at 10:30 AM. Please complete pre-admission surveys sent via email prior to arrival.
The Cardiac Rehab gym is located on the first floor of the [facility].)
Valerie Fox CRNP [Specified Professional Personl] - 12/16/23 8:00 am
Cruzito Mcnulty MD [Active] - in one to two weeks (For pancreatic lesion mgmt)
Linette Hernandez PA-C [Family Provider] -
Roger Boykin MD [Active] - in two to four weeks (Dr. Boykin on 08/18/2023--has appointment 12/22/2023 at 11:[address] Boykin)
Prescriptions:
New
Brilinta 90 mg Tablet
90 mg PO BID Qty: 180 3RF
doxycycline hyclate 100 mg capsule
100 mg PO BID Qty: 7 0RF
aspirin 81 mg Tablet,Chewable
81 mg PO DAILY Qty: 30 0RF
cefpodoxime 200 mg tablet
200 mg PO Q12H Qty: 7 0RF
metoprolol succinate 25 mg Tablet Extended Release 24 Hr
12.5 mg PO DAILY Qty: 30 11RF
Jardiance 10 mg Tablet
10 mg PO DAILY Qty: 30 11RF
furosemide 40 mg Tablet
40 mg PO DAILY Qty: 30 0RF
prednisone 10 mg Tablet
10 mg PO DIRECTED Qty: 12 0RF
Rx Instructions:
take 30mg x2 days, then 20mg x2 days then 10mg x2 days and stop
Continued
losartan 50 MG tablet
100 mg PO DAILY
zolpidem 10 MG tablet
10 mg PO HS
sertraline 50 MG tablet
150 mg PO DAILY
calcium carbonate 500 MG tablet
500 mg PO DAILY
atorvastatin 40 MG tablet
40 mg PO QPM
lansoprazole [Prevacid] 30 MG capsule,delayed release(DR/EC)
30 mg PO DAILY
albuterol sulfate 1 PUFF HFA aerosol inhaler
2 puff inhalation R Q4HPRN PRN (Reason: sob)
cholecalciferol (vitamin D3) 2,000 UNITS tablet
2,000 units PO DAILY
multivitamin with folic acid [Tab-A-Kashif] 1 TABLET tablet
1 tab PO DAILY
oxycodone-acetaminophen [Percocet] 10-325 mg Tablet
1 tab PO Q8HPRN PRN (Reason: severe pain)
Breztri Aerosphere 160-9-4.8 mcg/actuation Hfa Aerosol Inhaler
2 inh INHALATION R BID
Visbiome 112.5 billion cell Capsule
1 cap PO DAILY
melatonin 12 mg Tablet
12 mg PO HS PRN (Reason: insomnia )
Discontinued
biotin 5,000 MCG tablet,disintegrating
5,000 mcg PO DAILY
celecoxib 200 MG capsule
200 mg PO BID
Discharge Orders:
Discharge Patient (As Directed); Ordered 11/18/23
Ordered By: Maurilio Reyes
Care Plan Goals
Care Plan Goals:
Problem: Readiness for enhanced knowledge related to diagnosis and treatment plan
Goal: Understand your diagnosis and treatment plan needs, including medications if applicable.
Instructions: Know your diagnosis, underlying causes and treatment plan options, including medications if applicable. Consult with your health care team to learn about your diagnosis and treatment plan, including medications if applicable.
Discharge Date and Time
Print Language: SERBIAN
[2023-11-18] MEDS: ROCEPHIN IV (12:09)
[2023-11-18] MEDS: STERILE WATER FOR INJECTION IV (12:10)
[2023-11-18 23:34] LABS: Hepatitis B Surface Antigen Negative (Negative)
[2023-11-18 23:53] LABS: Hepatitis B Core Ab, Total Negative (Negative); Hepatitis B Surface Antibody Negative; Hepatitis C Antibody Negative (Negative)
== END 2023-11-18 13:24 | disposition home or self-care (01) | DRG 321 ==
LOC: IVU 19:28
PROVIDERS: Emergency Medicine; Internal Medicine Interventional Cardiology; Nurse Practitioner; ADMITTING PHYSICIAN Internal Medicine; ATTENDING PHYSICIAN Internal Medicine; CONSULT PHYSICIAN Internal Medicine Critical Care Medicine; EMERGENCY PHYSICIAN Emergency Medicine; FAMILY PHYSICIAN Physician Assistant Medical; OTHER PHYSICIAN Nuclear Medicine Nuclear Cardiology
PROC: 4A033BC Measurement of Arterial Pressure, Coronary, Percutaneous Approach (ICD-10-PCS; 2023-11-16)
PROC: 4A023N7 Measurement of Cardiac Sampling and Pressure, Left Heart, Percutaneous Approach (ICD-10-PCS; 2023-11-16)
PROC: B2111ZZ Fluoroscopy of Multiple Coronary Arteries using Low Osmolar Contrast (ICD-10-PCS; 2023-11-16)
PROC: 027034Z Dilation of Coronary Artery, One Artery with Drug-eluting Intraluminal Device, Percutaneous Approach (ICD-10-PCS; 2023-11-16)
DX: I21.4 Non-ST elevation (NSTEMI) myocardial infarction (principal); I50.41 Acute combined systolic (congestive) and diastolic (congestive) heart failure; J18.9 Pneumonia, unspecified organism; J96.01 Acute respiratory failure with hypoxia; J44.0 Chronic obstructive pulmonary disease with (acute) lower respiratory infection; J44.1 Chronic obstructive pulmonary disease with (acute) exacerbation; I11.0 Hypertensive heart disease with heart failure; F32.A Depression, unspecified; E05.20 Thyrotoxicosis with toxic multinodular goiter without thyrotoxic crisis or storm; J43.9 Emphysema, unspecified; D64.9 Anemia, unspecified; D01.7 Carcinoma in situ of other specified digestive organs; K83.8 Other specified diseases of biliary tract; K21.9 Gastro-esophageal reflux disease without esophagitis; E78.00 Pure hypercholesterolemia, unspecified; E87.6 Hypokalemia; F41.9 Anxiety disorder, unspecified; G62.9 Polyneuropathy, unspecified; G89.29 Other chronic pain; M54.9 Dorsalgia, unspecified; M48.00 Spinal stenosis, site unspecified; M51.26 Other intervertebral disc displacement, lumbar region; M79.7 Fibromyalgia; I25.10 Atherosclerotic heart disease of native coronary artery without angina pectoris; K59.00 Constipation, unspecified; G47.00 Insomnia, unspecified; M16.11 Unilateral primary osteoarthritis, right hip; R73.03 Prediabetes; R73.9 Hyperglycemia, unspecified; R91.1 Solitary pulmonary nodule; R74.01 Elevation of levels of liver transaminase levels; Z96.641 Presence of right artificial hip joint; Z79.899 Other long term (current) drug therapy; Z87.19 Personal history of other diseases of the digestive system; Z87.891 Personal history of nicotine dependence; Z90.49 Acquired absence of other specified parts of digestive tract; Z90.710 Acquired absence of both cervix and uterus; Z82.49 Family history of ischemic heart disease and other diseases of the circulatory system
CPT/HCPCS: 71046; 71275; 74181; 76700; 80053; 80061; 83036; 83605; 83690; 83735; 83880; 84145; 84439; 84443; 84484; 85025; 85347; 85610; 85730; 86704; 86706; 86803; 87040; 87324; 87340; 87449; 87502; 87798; 87807; 87811; 87899; 93005; 93306; 93458; 93571; 94640; 96365; 96366; 96367; 96375; 97162; 99152; 99153; 99291; C1725; C1769; C1874; C1894; C9600; Q9967

== ENCOUNTER 2023-12-24 11:56 | Outpatient (RCR) | payer MEDICARE, SELFPAY | END 2023-12-24 23:59 | disposition home or self-care (01) | LOC: CRHB 11:56 | PROVIDERS: ATTENDING PHYSICIAN Nuclear Medicine Nuclear Cardiology; FAMILY PHYSICIAN Physician Assistant Medical | DX: I25.10 Atherosclerotic heart disease of native coronary artery without angina pectoris (principal); Z95.5 Presence of coronary angioplasty implant and graft; I25.2 Old myocardial infarction | CPT/HCPCS: G0422; G0423 ==

== ENCOUNTER 2024-01-26 12:13 | Outpatient (RCR) | payer MEDICARE, SELFPAY | END 2024-01-26 23:59 | disposition home or self-care (01) | LOC: CRHB 12:13 | PROVIDERS: ATTENDING PHYSICIAN Nuclear Medicine Nuclear Cardiology; FAMILY PHYSICIAN Physician Assistant Medical | DX: I21.4 Non-ST elevation (NSTEMI) myocardial infarction (principal); Z95.5 Presence of coronary angioplasty implant and graft; I25.10 Atherosclerotic heart disease of native coronary artery without angina pectoris | CPT/HCPCS: G0422; G0423 ==

== ENCOUNTER 2024-02-18 13:11 | Outpatient (RCR) | payer MEDICARE, SELFPAY | END 2024-02-18 23:59 | disposition home or self-care (01) | LOC: CRHB 13:11 | PROVIDERS: ATTENDING PHYSICIAN Nuclear Medicine Nuclear Cardiology; FAMILY PHYSICIAN Physician Assistant Medical | DX: I21.4 Non-ST elevation (NSTEMI) myocardial infarction (principal); Z95.5 Presence of coronary angioplasty implant and graft; I25.10 Atherosclerotic heart disease of native coronary artery without angina pectoris | CPT/HCPCS: G0422; G0423 ==

== ENCOUNTER 2024-03-27 11:45 | Outpatient (RCR) | payer MEDICARE, SELFPAY | END 2024-03-27 23:59 | disposition home or self-care (01) | LOC: CRHB 11:45 | PROVIDERS: ATTENDING PHYSICIAN Nuclear Medicine Nuclear Cardiology; FAMILY PHYSICIAN Physician Assistant Medical | DX: I21.4 Non-ST elevation (NSTEMI) myocardial infarction (principal); I25.10 Atherosclerotic heart disease of native coronary artery without angina pectoris (principal); Z95.5 Presence of coronary angioplasty implant and graft; I25.2 Old myocardial infarction | CPT/HCPCS: G0422; G0423 ==

== ENCOUNTER 2024-03-31 10:32 | Outpatient (RCR) | payer MEDICARE, SELFPAY | END 2024-03-31 23:59 | disposition home or self-care (01) | LOC: CRHB 10:32 | PROVIDERS: ATTENDING PHYSICIAN Nuclear Medicine Nuclear Cardiology; FAMILY PHYSICIAN Physician Assistant Medical | DX: I25.10 Atherosclerotic heart disease of native coronary artery without angina pectoris (principal); I25.2 Old myocardial infarction; Z95.5 Presence of coronary angioplasty implant and graft | CPT/HCPCS: G0422; G0423 ==

== ENCOUNTER → 2024-04-12 15:07 | Outpatient (REF) | payer MEDICARE, SELFPAY | LOC: HWRAD 15:07 | PROVIDERS: ATTENDING PHYSICIAN Student in an Organized Health Care Education/Training Program; FAMILY PHYSICIAN Physician Assistant Medical | DX: M25.552 Pain in left hip (principal) | CPT/HCPCS: 73502 ==

== ENCOUNTER → 2024-05-22 15:46 | Outpatient (REF) | payer MEDICARE, SELFPAY | LOC: HWRCS 15:46 | PROVIDERS: ATTENDING PHYSICIAN Internal Medicine Interventional Cardiology; FAMILY PHYSICIAN Physician Assistant Medical | DX: I42.8 Other cardiomyopathies (principal) | CPT/HCPCS: 93308 ==

== ENCOUNTER → 2024-05-23 08:44 | Outpatient (REF) | payer MEDICARE, SELFPAY | LOC: HWWDC 08:44 | PROVIDERS: ATTENDING PHYSICIAN Physician Assistant Medical | DX: Z12.31 Encounter for screening mammogram for malignant neoplasm of breast (principal) | CPT/HCPCS: 77063; 77067 ==

== ENCOUNTER → 2025-02-02 11:39 | Outpatient (REF) | payer MEDICARE, SELFPAY | LOC: PAVMRI 11:39 | PROVIDERS: ATTENDING PHYSICIAN Specialist | DX: K86.2 Cyst of pancreas (principal) | CPT/HCPCS: 74183 ==

== ENCOUNTER → 2025-02-09 08:52 | Outpatient (REF) | payer MEDICARE, SELFPAY | LOC: PAVMRI 08:52 | PROVIDERS: ATTENDING PHYSICIAN Student in an Organized Health Care Education/Training Program | DX: M48.062 Spinal stenosis, lumbar region with neurogenic claudication (principal) | CPT/HCPCS: 72148 ==